=== PATIENT | male | born 1940 | race Caucasian/White ===

== ENCOUNTER → 2018-12-25 14:11 | Outpatient (CLI) | payer MEDICARE, OTHER, SELFPAY ==
--- NOTE | 2018-12-25 14:14 | DI.CT.S_ITS ---
PROCEDURE: CT SOFT TISSUE NECK W CON INDICATIONS: wt loss, h/o Hodgkin TECHNIQUE: After the administration of intravenous contrast, 3.0 mm axial sections acquired from the sella to the aortic arch. Additional oblique axial 3.0 mm sections acquired through the pharynx. 3 mm thick coronal and sagittal reformats were generated. For radiation dose reduction, the following was used: automated exposure control. COMPARISON: None. FINDINGS: Image quality: Excellent. Lymph nodes: No enlarged lymph nodes seen throughout the neck. Vessels: Visualized vasculature appears patent. Neck spaces: The oropharynx, nasopharynx, and pharynx demonstrate no mucosal lesions. The vocal cords, false vocal cords, pyriform sinuses, epiglottis, vallecula, and tongue base all appear normal. Extramucosal spaces appear unremarkable. Glands: The parotid and submandibular glands appear normal. Thyroid gland is within normal limits. Miscellaneous: Visualized brain and orbits appear normal. Lung apices appear clear. Superficial soft tissues appear normal. Bones: No suspicious bony lesions. Visualized sinuses and mastoids appear unremarkable. IMPRESSION: No neck soft tissue lymphadenopathy or soft tissue mass. Airway is patent. Dictated by: Samm Vidal M.D. on 12/25/2018 at 17:28 Approved by: Samm Vidal M.D. on 12/25/2018 at 17:30
--- NOTE | 2018-12-25 14:14 | DI.CT.S_ITS ---
PROCEDURE: CT CHEST ABD PEL W CON INDICATIONS: wt loss, h/o Hodgkin TECHNIQUE: After the administration of oral and intravenous contrast, 5 mm thick sections acquired from the lung apices to the symphysis. 5 mm coronal and sagittal reformats were performed, with additional 7 mm coronal MIP reformats through the lungs. For radiation dose reduction, the following was used: automated exposure control, adjustment of mA and/or kV according to patient size. COMPARISON: None. FINDINGS: Image quality: Excellent. CHEST: Lungs and pleura: No acute airspace opacities. Dependent atelectasis in posterior aspect of bilateral lung booker are seen. No discrete pulmonary nodule or mass. No pleural effusions or pneumothorax. Central and peripheral airways appear patent and normal in caliber. Mediastinum: Heart size is mildly enlarged. No pericardial effusion. No mediastinal or hilar adenopathy by size criteria. Thoracic aorta and central pulmonary arteries are normal in size. Esophagus is normal in caliber. There is a small hiatal hernia. Chest wall: No axillary or supraclavicular adenopathy by size criteria. Thyroid gland is within normal limits. ABDOMEN: Solid organs: Liver is normal in size and enhancement. 5 mm hypodensity is seen in left lobe of liver, and is too small to characterize Gallbladder is within normal limits. Biliary system is non dilated. Pancreas enhances normally. Spleen is normal in size and enhancement. No adrenal nodules. Kidneys demonstrate normal size and enhancement, without hydronephrosis. Tiny nonobstructing left renal calculi are seen. Peritoneum and bowel: Bowel loops demonstrate normal wall thickness and caliber. No free fluid or air. Nodes and vessels: No retroperitoneal or mesenteric adenopathy by size criteria. Aorta and inferior vena cava are normal in size. Miscellaneous: No ventral hernias. PELVIS: Genitourinary: Bladder wall thickness is normal. Enlarged prostate gland with mild mass effect of floor of urinary bladder is seen. Miscellaneous: No inguinal hernias or adenopathy. Surgical clips are seen in right inguinal region. Bones: No suspicious bony lesions. No vertebral body compression fractures. Vacuum disc phenomenon is seen at L5-S1 level. IMPRESSION: 1. Dependent atelectasis in posterior aspect of bilateral lung booker. No discrete pulmonary nodule or mass. Airway is patent. 2. No abnormally enlarged lymph nodes are seen in chest, abdomen or pelvis. 3. Possible 5 mm cyst in left lobe of liver. 4. No bowel obstruction. No free fluid or free air. 5. Enlarged prostate gland with mass effect of floor of urinary bladder. Dictated by: Samm Vidal M.D. on 12/25/2018 at 17:12 Approved by: Samm Vidal M.D. on 12/25/2018 at 17:23
== END ==
PROVIDERS: Visit Provider Internal Medicine Hematology & Oncology
DX: R63.4 Abnormal weight loss (principal); R16.1 Splenomegaly, not elsewhere classified; R63.0 Anorexia; Z85.71 Personal history of Hodgkin lymphoma
CPT/HCPCS: 70491; 71260; 74177; Q9967

== ENCOUNTER → 2019-01-31 13:22 | Outpatient (CLI) | payer MEDICARE, OTHER, SELFPAY ==
[2019-01-31 14:03] LABS: Hematocrit 37.2 % (41-53); Mean Corpuscular HGB Conc 34.8 % (30-36); Mean Corpuscular Hemoglobin 33.6 PG (26-34); Mean Corpuscular Volume 96.4 fL (80-100); Platelet Count 120 X10^3/uL (150-400); Red Blood Cell Count 3.86 X10^6/uL (4.5-5.9); Red Cell Distribution Width 12.8 % (11.6-14.8); White Blood Cell Count 5.7 X10^3/uL (4.5-11.0)
[2019-01-31 14:41] LABS: Alanine Aminotransferase 43 IU/L (21-72); Albumin 4.5 g/dL (3.5-5.0); Albumin Globulin Ratio 1.9 (1.0-2.8); Alkaline Phosphatase 36 U/L (38-126); Aspartate Aminotransferase 38 IU/L (17-59); BUN Creatinine Ratio 11.5 (6-22); Bilirubin Total 0.7 mg/dL (0.2-1.3); Blood Urea Nitrogen 15 mg/dL (9-20); Calcium 9.9 mg/dL (8.4-10.2); Carbon Dioxide 31 mmol/L (22-32); Chloride 99 mmol/L (98-107); Estimated Glomerular Filt Rate 53.1 mL/min (>60); Globulin 2.4 g/dL (1.7-4.1); Glucose 108 mg/dL (80-110); HEMOLYSIS < 15 (0-50); Potassium 4.5 mmol/L (3.4-5.1); Sodium 140 mmol/L (137-145); Total Protein 6.9 g/dL (6.3-8.2)
[2019-01-31 15:12] LABS: Prostate Specific Antigen 1.52 ng/mL (0.10-4.00)
== END ==
PROVIDERS: Visit Provider Internal Medicine Hematology & Oncology
DX: N40.0 Benign prostatic hyperplasia without lower urinary tract symptoms (principal); R16.1 Splenomegaly, not elsewhere classified; Z85.71 Personal history of Hodgkin lymphoma
CPT/HCPCS: 36415; 80053; 84153; 84403; 85027

== ENCOUNTER → 2019-02-04 13:20 | Oncology outpatient (ONC) | payer MEDICARE, OTHER, SELFPAY ==
--- NOTE | 2018-12-24 11:47 | ONC.CONS ---
History of Present Illness - Data of Consult Patient: new to practice Consult date: 12/24/18 Requesting Physician: briseyda Mccann Primary Care Provider: Dr. Briseyda Aranda - Consult Narrative Reason for consult: Wt loss, H/O HL. Narrative: ID and Reason for the Visit: Wayne Ibarra is a 78 year old male. He was referred by Dr. Briseyda Aranda for evaluation of weight loss. He has a history of Hodgkin's lymphoma. Oncological History: Stage IV classic Hodgkin's disease based on bone marrow biopsy performed for anemia. He presented with fatigue, anemia, night sweats and itching skin. He achieved complete remission after standard ABVD September 2003. Interim Events: Recently patient was evaluated by Dr. Debo Aranda. Patient reported fecal incontinence for a couple of months before it stopped spontaneously. During the same time, patient developed significant poor appetite and weight loss about 15 lb over past 1 year. He denies any night sweats, fever, lumps or bumps, cough, or chest pain. In addition to weight loss, patient complains of low energy level for years. According to patient's , he has never recovered fully after his previous chemotherapy for Hodgkin's lymphoma in 2003. CC: eHnrry Young MD Home Medications and Allergies Home Medications Medication Instructions Recorded Confirmed Type pravastatin 20 mg tablet 20 mg PO DAILY 10/12/18 10/25/18 History suvorexant 20 mg tablet 20 mg PO BEDTIME 10/12/18 10/25/18 History trazodone 50 mg tablet 50 mg PO BEDTIME PRN 10/12/18 10/25/18 History ascorbic acid (vitamin C) [Vitamin 500 mg PO DAILY 12/24/18 12/24/18 History C] buprenorphine-naloxone [Suboxone] 1 film BUCCAL DAILY 12/24/18 12/24/18 History furosemide 40 mg PO DAILY 12/24/18 12/24/18 History meloxicam 7.5 mg PO BID 12/24/18 12/24/18 History multivitamin 1 cap PO DAILY 12/24/18 12/24/18 History tamsulosin [Flomax] 0.4 mg PO DAILY 12/24/18 12/24/18 History Allergies Allergy/AdvReac Type Severity Reaction Status Date / Time No Known Drug Allergies Allergy Unverified 10/25/18 14:40 Medical History - Medical, Surgical, Family History Medical History: Medical History (Updated 12/24/18 @ 12:39 by Henrry Young MD) Depression (Acute) Hyperlipidemia (Chronic) Insomnia (Chronic) Obstructive sleep apnea of adult Surgical History: Surgical History (Updated 12/24/18 @ 12:04 by Henrry Young MD) History of tonsillectomy Family History: Family History (Updated 12/24/18 @ 12:05 by Henrry Young MD) Mother Colon cancer - Social History Smoking Status: Never smoker Substance Use Type: does not use Alcohol Intake: current (beer, most nights,) Exam Vital signs: Last Vital Signs Temp 98.7 F 12/24/18 11:54 Pulse 45 L 12/24/18 11:54 Resp 16 12/24/18 11:54 BP 131/71 12/24/18 11:54 Pulse Ox 99 12/24/18 11:54 Narrative: ECGO 1 Gen: WDWN, NAD, pleasant and cooperative. HEENT: NCAT, EOMI, PERRLA, anicteric sclera. Neck: Supple, No palpable thyromegaly or lymphadenopathy. Respiratory: CTAB, no wheezes audible. No JVD Cardiovascular: RRR, S1 and S2 normal, no M/G/R. Abdomen: Soft, no hepatomegaly. Spleen is palpable about 10 cm below the left costal margin with mild tenderness. Extremities: No LE pitting edema. Lymphatic: no palpable lymph nodes in the neck, axillae, or groins. Neurological: AOx3, CN II-XII grossly intact. No focal motor or sensory deficit. Psychiatric: Good judgment and insight; normal affect; normal thought process; cooperative, no depression, no anxiety. Results - Labs Laboratory Last Values WBC 5.0 X10^3/uL (4.5-11.0) 12/24/18 13:05 RBC 3.77 X10^6/uL (4.5-5.9) L 12/24/18 13:05 Hgb 12.7 g/dL (13.5-17.5) L 12/24/18 13:05 Hct 37.1 % (41-53) L 12/24/18 13:05 MCV 98.4 fL (80-100) 12/24/18 13:05 MCH 33.6 PG (26-34) 12/24/18 13:05 MCHC 34.1 % (30-36) 12/24/18 13:05 RDW 12.8 % (11.6-14.8) 12/24/18 13:05 Plt Count 133 X10^3/uL (150-400) L 12/24/18 13:05 Neut % (Auto) 57.3 % (50-75) 12/24/18 13:05 Lymph % (Auto) 30.3 % (25-40) 12/24/18 13:05 [place] % (Auto) 9.0 % (3-14) 12/24/18 13:05 Eos % (Auto) 3.1 % (2-4) 12/24/18 13:05 Baso % (Auto) 0.3 % (0-2) 12/24/18 13:05 Neut # (Auto) 2800 /uL (0274-0094) 12/24/18 13:05 Lymph # (Auto) 1500 /uL (9812-9162) 12/24/18 13:05 [place] # (Auto) 400 /uL (0-900) 12/24/18 13:05 Eos # (Auto) 200 /uL (0-450) 12/24/18 13:05 Baso # (Auto) 0 /uL (0-100) 12/24/18 13:05 ESR 1 MM/HR (0-15) 12/24/18 13:05 Sodium 140 mmol/L (137-145) 12/24/18 13:05 Potassium 4.6 mmol/L (3.4-5.1) 12/24/18 13:05 Chloride 101 mmol/L (98-107) 12/24/18 13:05 Carbon Dioxide 31 mmol/L (22-32) 12/24/18 13:05 BUN 14 mg/dL (9-20) 12/24/18 13:05 Creatinine 1.40 mg/dL (0.66-1.25) H 12/24/18 13:05 Estimated GFR 48.8 mL/min (>60) L 12/24/18 13:05 BUN/Creatinine Ratio 10.0 (6-22) 12/24/18 13:05 Glucose 102 mg/dL (80-110) 12/24/18 13:05 Calcium 9.5 mg/dL (8.4-10.2) 12/24/18 13:05 Total Bilirubin 0.6 mg/dL (0.2-1.3) 12/24/18 13:05 AST 31 IU/L (17-59) 12/24/18 13:05 ALT 40 IU/L (21-72) 12/24/18 13:05 Alkaline Phosphatase 39 U/L (38-126) 12/24/18 13:05 Lactate Dehydrogenase 487 U/L (313-618) 12/24/18 13:05 C-Reactive Protein < 0.5 mg/dL (<1.0) 12/24/18 13:05 Total Protein 6.6 g/dL (6.3-8.2) 12/24/18 13:05 Albumin 4.3 g/dL (3.5-5.0) 12/24/18 13:05 Globulin 2.3 g/dL (1.7-4.1) 12/24/18 13:05 Albumin/Globulin Ratio 1.9 (1.0-2.8) 12/24/18 13:05 - Imaging Additional studies: Procedures Endoscopic polypectomy of large intestine (12/27/11) [Endoscopic] polypectomy of rectum (12/27/11) Assessment and Plan (1) Weight loss Unexplained weight loss with palpable splenomegaly, fatigue, loss of appetite in the context of remote history of Hodgkin's lymphoma is suspicious for possible recurrence. I will proceed with CT scan of the neck chest abdomen and pelvis with contrast. And I will see the patient next week for further discussion of possible tissue diagnosis. (2) Splenomegaly See Weight Loss above (3) Loss of appetite See Weight Loss above (4) History of Hodgkin's lymphoma Stage IV classic Hodgkin's disease based on bone marrow biopsy performed for anemia. He presented with fatigue, anemia, night sweats and itching skin. He achieved complete remission after standard ABVD September 2003.
[2018-12-24 11:54] VITALS: BP 131/71; PULSE 45; RESP 16; TEMP 37.1; O2SAT 99
[2018-12-24 13:24] LABS: Add Manual Diff / Slide Review NO; Basophils Absolute Auto 0 /uL (0-100); Basophils Percent Auto 0.3 % (0-2); Eosinophils Absolute Auto 200 /uL (0-450); Eosinophils Percent Auto 3.1 % (2-4); Hematocrit 37.1 % (41-53); Hemoglobin 12.7 g/dL (13.5-17.5); Lymphocytes Absolute Auto 1500 /uL (1100-4500); Lymphocytes Percent Auto 30.3 % (25-40); Mean Corpuscular HGB Conc 34.1 % (30-36); Mean Corpuscular Hemoglobin 33.6 PG (26-34); Mean Corpuscular Volume 98.4 fL (80-100); Monocytes Absolute Auto 400 /uL (0-900); Neutrophils Absolute Auto 2800 /uL (1500-7000); Neutrophils Percent Auto 57.3 % (50-75); Platelet Count 133 X10^3/uL (150-400); Red Blood Cell Count 3.77 X10^6/uL (4.5-5.9); Red Cell Distribution Width 12.8 % (11.6-14.8)
[2018-12-24 13:47] LABS: Erythrocyte Sedimentation Rate 1 MM/HR (0-15)
[2018-12-24 13:56] LABS: Alanine Aminotransferase 40 IU/L (21-72); Albumin 4.3 g/dL (3.5-5.0); Albumin Globulin Ratio 1.9 (1.0-2.8); Alkaline Phosphatase 39 U/L (38-126); Aspartate Aminotransferase 31 IU/L (17-59); Bilirubin Total 0.6 mg/dL (0.2-1.3); Blood Urea Nitrogen 14 mg/dL (9-20); C-Reactive Protein Quant < 0.5 mg/dL (<1.0); Calcium 9.5 mg/dL (8.4-10.2); Carbon Dioxide 31 mmol/L (22-32); Chloride 101 mmol/L (98-107); Estimated Glomerular Filt Rate 48.8 mL/min (>60); Globulin 2.3 g/dL (1.7-4.1); Glucose 102 mg/dL (80-110); HEMOLYSIS < 15 (0-50); Lactate Dehydrogenase 487 U/L (313-618); Potassium 4.6 mmol/L (3.4-5.1); Sodium 140 mmol/L (137-145); Total Protein 6.6 g/dL (6.3-8.2)
[2019-01-03 08:25] VITALS: BP 128/73; PULSE 50; RESP 20; TEMP 36.4; O2SAT 98
--- NOTE | 2019-01-03 08:36 | ONC.PN ---
PN -Subjective Interval history: ID and Reason for the Visit: Wayne Ibarra is a 78 year old male. He was referred by Dr. Sayda Aranda for evaluation of weight loss. He has a history of Hodgkin's lymphoma. Oncological History: Stage IV classic Hodgkin's disease based on bone marrow biopsy performed for anemia. He presented with fatigue, anemia, night sweats and itching skin. He achieved complete remission after standard ABVD September 2003. Interim Events: Since his previous visit, clinically patient reports no new signs or symptoms. Patient underwent CT of the neck chest abdomen and pelvis on 12/25/2018. The scan showed no evidence of lymphadenopathy, no evidence of pulmonary nodules, and no evidence of splenomegaly. Instead it showed significantly enlarged prostate. Patient and patient's said that PSA level was normal about a month ago at Dr. Debo Aranda's office. Today, I look back on the weight chart, patient's weight actually has been stable since December of 2017. Today patient said that his appetite seems to be improving. - Patient Self-Reported Symptoms SR Constitution: Weight loss/gain, Fatigue/Malaise SR Skin issues: Skin lesions or moles, Nail changes SR Gastrointestinal issues: Poor or no appetite, Change in bowel pattern, Diarrhea SR Musculoskeletal issues: Difficulty walking SR Neuro issues: Difficulty balancing SR Endocrine issues: Cold intolerance - Additional ROS All systems PM: reviewed and no additional remarkable complaints except as stated Home Medications and Allergies Home Medications Medication Instructions Recorded Confirmed Type pravastatin 20 mg tablet 20 mg PO DAILY 10/12/18 01/03/19 History suvorexant 20 mg tablet 20 mg PO BEDTIME 10/12/18 01/03/19 History trazodone 50 mg tablet 50 mg PO BEDTIME PRN 10/12/18 01/03/19 History ascorbic acid (vitamin C) [Vitamin 500 mg PO DAILY 12/24/18 01/03/19 History C] buprenorphine-naloxone [Suboxone] 1 film BUCCAL DAILY 12/24/18 01/03/19 History furosemide 40 mg PO DAILY 12/24/18 01/03/19 History meloxicam 7.5 mg PO BID 12/24/18 01/03/19 History multivitamin 1 cap PO DAILY 12/24/18 01/03/19 History tamsulosin [Flomax] 0.4 mg PO DAILY 12/24/18 01/03/19 History Allergies Allergy/AdvReac Type Severity Reaction Status Date / Time No Known Drug Allergies Allergy Unverified 10/25/18 14:40 Exam Vital signs: Vital Signs Temp Pulse Resp BP Pulse Ox 01/03/19 08:25 97.5 F L 50 L 20 128/73 98 Intake and Output 01/02/19 01/03/19 01/03/19 23:59 07:59 15:59 Other: Weight 80.2 kg Patient Weight 01/03/19 23:59 Weight 80.2 kg Narrative: ECGO 1 Gen: WDWN, NAD, pleasant and cooperative. HEENT: NCAT, EOMI, PERRLA, anicteric sclera. Neck: Supple, No palpable thyromegaly or lymphadenopathy. Respiratory: CTAB, no wheezes audible. No JVD Cardiovascular: RRR, S1 and S2 normal, no M/G/R. Abdomen: Soft, no hepatomegaly. no splenomegaly Extremities: No LE pitting edema. Lymphatic: no palpable lymph nodes in the neck, axillae, or groins. Neurological: AOx3, CN II-XII grossly intact. No focal motor or sensory deficit. Psychiatric: Normal affect; normal thought process; cooperative, no depression, no anxiety. Results - Labs Laboratory Last Values WBC 5.0 X10^3/uL (4.5-11.0) 12/24/18 13:05 RBC 3.77 X10^6/uL (4.5-5.9) L 12/24/18 13:05 Hgb 12.7 g/dL (13.5-17.5) L 12/24/18 13:05 Hct 37.1 % (41-53) L 12/24/18 13:05 MCV 98.4 fL (80-100) 12/24/18 13:05 MCH 33.6 PG (26-34) 12/24/18 13:05 MCHC 34.1 % (30-36) 12/24/18 13:05 RDW 12.8 % (11.6-14.8) 12/24/18 13:05 Plt Count 133 X10^3/uL (150-400) L 12/24/18 13:05 Neut % (Auto) 57.3 % (50-75) 12/24/18 13:05 Lymph % (Auto) 30.3 % (25-40) 12/24/18 13:05 [place] % (Auto) 9.0 % (3-14) 12/24/18 13:05 Eos % (Auto) 3.1 % (2-4) 12/24/18 13:05 Baso % (Auto) 0.3 % (0-2) 12/24/18 13:05 Neut # (Auto) 2800 /uL (5168-9939) 12/24/18 13:05 Lymph # (Auto) 1500 /uL (7075-5718) 12/24/18 13:05 [place] # (Auto) 400 /uL (0-900) 12/24/18 13:05 Eos # (Auto) 200 /uL (0-450) 12/24/18 13:05 Baso # (Auto) 0 /uL (0-100) 12/24/18 13:05 ESR 1 MM/HR (0-15) 12/24/18 13:05 Sodium 140 mmol/L (137-145) 12/24/18 13:05 Potassium 4.6 mmol/L (3.4-5.1) 12/24/18 13:05 Chloride 101 mmol/L (98-107) 12/24/18 13:05 Carbon Dioxide 31 mmol/L (22-32) 12/24/18 13:05 BUN 14 mg/dL (9-20) 12/24/18 13:05 Creatinine 1.40 mg/dL (0.66-1.25) H 12/24/18 13:05 Estimated GFR 48.8 mL/min (>60) L 12/24/18 13:05 BUN/Creatinine Ratio 10.0 (6-22) 12/24/18 13:05 Glucose 102 mg/dL (80-110) 12/24/18 13:05 Calcium 9.5 mg/dL (8.4-10.2) 12/24/18 13:05 Total Bilirubin 0.6 mg/dL (0.2-1.3) 12/24/18 13:05 AST 31 IU/L (17-59) 12/24/18 13:05 ALT 40 IU/L (21-72) 12/24/18 13:05 Alkaline Phosphatase 39 U/L (38-126) 12/24/18 13:05 Lactate Dehydrogenase 487 U/L (313-618) 12/24/18 13:05 C-Reactive Protein < 0.5 mg/dL (<1.0) 12/24/18 13:05 Total Protein 6.6 g/dL (6.3-8.2) 12/24/18 13:05 Albumin 4.3 g/dL (3.5-5.0) 12/24/18 13:05 Globulin 2.3 g/dL (1.7-4.1) 12/24/18 13:05 Albumin/Globulin Ratio 1.9 (1.0-2.8) 12/24/18 13:05 - Imaging Additional studies: Procedures Endoscopic polypectomy of large intestine (12/27/11) [Endoscopic] polypectomy of rectum (12/27/11) Assessment and Plan (1) Enlarged prostate The CT scan we obtained on December 25 showed significantly enlarged prostate with mass effect of floor of urinary bladder. Remarkably, clinically patient does not have any problems with the urine. Patient did have a brief history of fecal incontinence which has already resolved. I talked with him and his that the fecal incontinence might be related to the enlarged prostate. I recommended urology evaluation and patient agrees. Plan: Referral to urology at [facility] in one month, CBC, CMP, PSA/T (2) Elevated serum creatinine Mildly elevated serum creatinine level. Suspicious for possible chronic kidney disease. We will follow up the trend when he comes back in a month. (3) Weight loss Today, I compared the weight from 2018 to the weight we obtained today. Patient's weight actually has remained stable. Patient's suggested that patient may have a weight gain and recently lost some weight. I talked with him that I will continue follow-up on his change of weight. (4) Loss of appetite Patient admitted that his appetite seems to be improving. I talked with him that I will continue active surveillance and pay special attention to his weight and appetite. Patient voiced understanding. (5) History of Hodgkin's lymphoma Stage IV classic Hodgkin's disease based on bone marrow biopsy performed for anemia. He presented with fatigue, anemia, night sweats and itching skin at that time. He achieved complete remission after standard ABVD September 2003. Today, I reviewed the CT scan results at the [facility] with the patient and his . I talked with them that there is no evidence of lymphadenopathy from neck to pelvis. In my opinion there are no signs or symptoms to suggest recurrence of his previous Hodgkin's lymphoma. I will continue active surveillance.
[2019-01-11 10:38] LABS: Beta-2-Microglobulin 2.86
[2019-02-04 13:20] VITALS: BP 135/69; PULSE 52; RESP 18; TEMP 36.2; O2SAT 100
--- NOTE | 2019-02-04 13:32 | P.PNONC_ITS ---
PN -Subjective Interval history: ID and Reason for the Visit: Wayne Ibarra is a 78 year old male. He was referred by Dr. Sayda Aranda for evaluation of weight loss. He has a history of Hodgkin's lymphoma. Oncological History: Stage IV classic Hodgkin's disease based on bone marrow biopsy performed for anemia. He presented with fatigue, anemia, night sweats and itching skin. He achieved complete remission after standard ABVD September 2003. Interim Events: Patient underwent CT of the neck chest abdomen and pelvis on 12/25/2018. The scan showed no evidence of lymphadenopathy, no evidence of pulmonary nodules, and no evidence of splenomegaly. Instead it showed significantly enlarged prostate. Because of the CT finding of prostate enlargement, patient was referred to Dr. Carrion at [facility]. The CT images were reviewed together with the patient. It showed left punctate kidney stone and enlarged prostate. However Dr. Carrion did not find the findings terribly impressive. After discussing with the patient, no PSA screening will be pursued. - Patient Self-Reported Symptoms SR Constitution: Weight loss/gain, Fatigue/Malaise SR Skin issues: Skin lesions or moles, Nail changes SR Gastrointestinal issues: Poor or no appetite, Change in bowel pattern, Diarrhea SR Musculoskeletal issues: Muscle pain or cramps SR Neuro issues: Difficulty balancing SR Endocrine issues: Cold intolerance - Additional ROS All systems PM: reviewed and no additional remarkable complaints except as stated Home Medications and Allergies Home Medications Medication Instructions Recorded Confirmed Type pravastatin 20 mg tablet 20 mg PO DAILY 10/12/18 02/04/19 History suvorexant 20 mg tablet 20 mg PO BEDTIME 10/12/18 02/04/19 History trazodone 50 mg tablet 300 mg PO BEDTIME PRN 10/12/18 02/04/19 History ascorbic acid (vitamin C) [Vitamin 500 mg PO DAILY 12/24/18 02/04/19 History C] buprenorphine-naloxone [Suboxone] 1 film BUCCAL DAILY 12/24/18 02/04/19 History furosemide 80 mg PO DAILY 12/24/18 02/04/19 History meloxicam 7.5 mg PO BID 12/24/18 02/04/19 History multivitamin 1 cap PO DAILY 12/24/18 02/04/19 History tamsulosin [Flomax] 0.4 mg PO DAILY 12/24/18 02/04/19 History Allergies Allergy/AdvReac Type Severity Reaction Status Date / Time No Known Drug Allergies Allergy Unverified 10/25/18 14:40 Exam Vital signs: Vital Signs Temp Pulse Resp BP Pulse Ox 02/04/19 13:20 97.1 F L 52 L 18 135/69 100 Intake and Output 02/03/19 02/04/19 02/04/19 23:59 07:59 15:59 Other: Weight 81 kg Patient Weight 02/04/19 23:59 Weight 81 kg Results - Labs Laboratory Last Values WBC 5.0 X10^3/uL (4.5-11.0) 12/24/18 13:05 RBC 3.77 X10^6/uL (4.5-5.9) L 12/24/18 13:05 Hgb 12.7 g/dL (13.5-17.5) L 12/24/18 13:05 Hct 37.1 % (41-53) L 12/24/18 13:05 MCV 98.4 fL (80-100) 12/24/18 13:05 MCH 33.6 PG (26-34) 12/24/18 13:05 MCHC 34.1 % (30-36) 12/24/18 13:05 RDW 12.8 % (11.6-14.8) 12/24/18 13:05 Plt Count 133 X10^3/uL (150-400) L 12/24/18 13:05 Neut % (Auto) 57.3 % (50-75) 12/24/18 13:05 Lymph % (Auto) 30.3 % (25-40) 12/24/18 13:05 [place] % (Auto) 9.0 % (3-14) 12/24/18 13:05 Eos % (Auto) 3.1 % (2-4) 12/24/18 13:05 Baso % (Auto) 0.3 % (0-2) 12/24/18 13:05 Neut # (Auto) 2800 /uL (9552-0302) 12/24/18 13:05 Lymph # (Auto) 1500 /uL (0650-5599) 12/24/18 13:05 [place] # (Auto) 400 /uL (0-900) 12/24/18 13:05 Eos # (Auto) 200 /uL (0-450) 12/24/18 13:05 Baso # (Auto) 0 /uL (0-100) 12/24/18 13:05 ESR 1 MM/HR (0-15) 12/24/18 13:05 Sodium 140 mmol/L (137-145) 12/24/18 13:05 Potassium 4.6 mmol/L (3.4-5.1) 12/24/18 13:05 Chloride 101 mmol/L (98-107) 12/24/18 13:05 Carbon Dioxide 31 mmol/L (22-32) 12/24/18 13:05 BUN 14 mg/dL (9-20) 12/24/18 13:05 Creatinine 1.40 mg/dL (0.66-1.25) H 12/24/18 13:05 Estimated GFR 48.8 mL/min (>60) L 12/24/18 13:05 BUN/Creatinine Ratio 10.0 (6-22) 12/24/18 13:05 Glucose 102 mg/dL (80-110) 12/24/18 13:05 Calcium 9.5 mg/dL (8.4-10.2) 12/24/18 13:05 Total Bilirubin 0.6 mg/dL (0.2-1.3) 12/24/18 13:05 AST 31 IU/L (17-59) 12/24/18 13:05 ALT 40 IU/L (21-72) 12/24/18 13:05 Alkaline Phosphatase 39 U/L (38-126) 12/24/18 13:05 Lactate Dehydrogenase 487 U/L (313-618) 12/24/18 13:05 C-Reactive Protein < 0.5 mg/dL (<1.0) 12/24/18 13:05 Total Protein 6.6 g/dL (6.3-8.2) 12/24/18 13:05 Albumin 4.3 g/dL (3.5-5.0) 12/24/18 13:05 Globulin 2.3 g/dL (1.7-4.1) 12/24/18 13:05 Albumin/Globulin Ratio 1.9 (1.0-2.8) 12/24/18 13:05 [id number] 2.86 12/24/18 13:05 - Imaging Additional studies: Procedures Endoscopic polypectomy of large intestine (12/27/11) [Endoscopic] polypectomy of rectum (12/27/11) Assessment and Plan (1) Enlarged prostate The CT scan we obtained on December 25 showed significantly enlarged prostate with mass effect of floor of urinary bladder. Dr. Carrion at [facility] saw the patient and did not think there is any terribly impressive CT finding. She discussed with the patient about the guideline for PSA screening, patient decided not to continue PSA screening. (2) Elevated serum creatinine Mildly elevated serum creatinine level. Suspicious for possible chronic kidney disease. Follow up with Dr. Alfredo (3) Loss of appetite Patient admitted that his appetite seems to be improving. I talked with him that I will continue active surveillance and pay special attention to his weight and appetite. Patient voiced understanding. (4) History of Hodgkin's lymphoma Stage IV classic Hodgkin's disease based on bone marrow biopsy performed for anemia. He presented with fatigue, anemia, night sweats and itching skin at that time. He achieved complete remission after standard ABVD September 2003. No clinical or imagine evidence of recurrence. Continue active surveillance. Plan: 1. RTC in 6 months, 2. CBC, CMP, LDH
== END ==
PROVIDERS: PCP Student in an Organized Health Care Education/Training Program; Visit Provider Internal Medicine Hematology & Oncology
DX: N40.0 Benign prostatic hyperplasia without lower urinary tract symptoms (principal); R63.0 Anorexia; R63.4 Abnormal weight loss; R74.8 Abnormal levels of other serum enzymes; Z85.71 Personal history of Hodgkin lymphoma
CPT/HCPCS: 36415; 80053; 82232; 83615; 85025; 85651; 86140; 99204; 99214

== ENCOUNTER → 2020-01-31 11:12 | Outpatient (CLI) | payer MEDICARE, OTHER, SELFPAY | PROVIDERS: PCP Physician Assistant; Referring Provider Physician Assistant; Visit Provider Physician Assistant | DX: R19.7 Diarrhea, unspecified (principal) | CPT/HCPCS: 87177 ==

== ENCOUNTER → 2020-02-09 14:22 | Outpatient (CLI) | payer MEDICARE, OTHER, SELFPAY ==
[2020-02-10 14:48] LABS: COVID19 Sendout Not Detected (Not Detect)
== END ==
PROVIDERS: PCP Physician Assistant; Visit Provider Physician Assistant
DX: Z01.812 Encounter for preprocedural laboratory examination (principal)
CPT/HCPCS: 87635

== ENCOUNTER → 2020-12-15 07:39 | Outpatient (CLI) | payer MEDICARE, OTHER, SELFPAY ==
[2020-12-15 09:26] LABS: Add Manual Diff / Slide Review NO; Basophils Absolute Auto 0 /uL (0-100); Basophils Percent Auto 0.5 % (0-2); Eosinophils Absolute Auto 100 /uL (0-450); Eosinophils Percent Auto 2.8 % (2-4); Hematocrit 42.6 % (41-53); Hemoglobin 14.3 g/dL (13.5-17.5); Lymphocytes Absolute Auto 1400 /uL (1100-4500); Lymphocytes Percent Auto 27.9 % (25-40); Mean Corpuscular HGB Conc 33.7 % (30-36); Mean Corpuscular Hemoglobin 34.3 PG (26-34); Mean Corpuscular Volume 101.8 fL (80-100); Monocytes Absolute Auto 400 /uL (0-900); Monocytes Percent Auto 8.6 % (3-14); Neutrophils Absolute Auto 3000 /uL (1500-7000); Neutrophils Percent Auto 60.2 % (50-75); Platelet Count 128 X10^3/uL (150-400); Red Blood Cell Count 4.18 X10^6/uL (4.5-5.9); Red Cell Distribution Width 12.5 % (11.6-14.8)
[2020-12-15 09:27] LABS: Alanine Aminotransferase 45 IU/L (<50); Albumin 4.1 g/dL (3.5-5.0); Albumin Globulin Ratio 1.7 (1.0-2.8); Alkaline Phosphatase 50 U/L (38-126); Aspartate Aminotransferase 43 IU/L (17-59); BUN Creatinine Ratio 13.1 (6-22); Bilirubin Total 0.5 mg/dL (0.2-1.3); Blood Urea Nitrogen 17 mg/dL (9-20); Calcium 9.7 mg/dL (8.4-10.2); Carbon Dioxide 29 mmol/L (22-32); Chloride 108 mmol/L (98-107); Cholesterol 158 mg/dL (140-199); Estimated Glomerular Filt Rate 52.9 mL/min (>60); Globulin 2.4 g/dL (1.7-4.1); Glucose 112 mg/dL (80-110); HDL Cholesterol 48 mg/dL (40-60); HEMOLYSIS 18 (0-50); LDL Cholesterol Calculated 85 mg/dL (<100); Potassium 4.5 mmol/L (3.4-5.1); Sodium 143 mmol/L (137-145); Total Protein 6.5 g/dL (6.3-8.2); Triglycerides 125 mg/dL (35-150)
[2020-12-15 09:41] LABS: Follicle Stimulating Hormone 0.95 mIU/mL; Luteinizing Hormone 0.336 mIU/mL
[2020-12-15 09:55] LABS: Thyroid Stimulating Hormone 0.134 uIU/mL (0.47-4.68)
[2020-12-15 12:47] LABS: Free T4, Direct Thyroxine 0.83 ng/dL (0.78-2.19)
[2020-12-22 10:47] LABS: Percent Free Testosterone 2.31 % (1.50-4.20); Testosterone Free 6.12 ng/dL (5.00-21.00); Testosterone Total 264.8 ng/dL (264.0-916.0)
== END ==
PROVIDERS: PCP Physician Assistant; Referring Provider Physician Assistant; Visit Provider Physician Assistant
DX: R53.83 Other fatigue (principal); E29.1 Testicular hypofunction; Z13.220 Encounter for screening for lipoid disorders
CPT/HCPCS: 36415; 80053; 80061; 83001; 83002; 84402; 84403; 84439; 84443; 85025

== ENCOUNTER → 2021-02-23 15:01 | Outpatient (CLI) | payer MEDICARE, OTHER, SELFPAY ==
[2021-02-23 15:37] LABS: Add Manual Diff / Slide Review NO; Basophils Absolute Auto 0 /uL (0-100); Basophils Percent Auto 0.6 % (0-2); Eosinophils Absolute Auto 100 /uL (0-450); Eosinophils Percent Auto 1.4 % (2-4); Hematocrit 49.3 % (41-53); Hemoglobin 16.3 g/dL (13.5-17.5); Lymphocytes Absolute Auto 1300 /uL (1100-4500); Mean Corpuscular Hemoglobin 34.5 PG (26-34); Mean Corpuscular Volume 104.5 fL (80-100); Monocytes Absolute Auto 700 /uL (0-900); Monocytes Percent Auto 11.5 % (3-14); Neutrophils Absolute Auto 3900 /uL (1500-7000); Neutrophils Percent Auto 65.5 % (50-75); Platelet Count 120 X10^3/uL (150-400); Red Blood Cell Count 4.71 X10^6/uL (4.5-5.9); Red Cell Distribution Width 13.3 % (11.6-14.8)
[2021-02-23 16:15] LABS: Alanine Aminotransferase 53 IU/L (<50); Albumin 4.1 g/dL (3.5-5.0); Albumin Globulin Ratio 1.8 (1.0-2.8); Alkaline Phosphatase 43 U/L (38-126); Aspartate Aminotransferase 49 IU/L (17-59); BUN Creatinine Ratio 7.1 (6-22); Bilirubin Total 0.6 mg/dL (0.2-1.3); Blood Urea Nitrogen 8 mg/dL (9-20); Calcium 9.3 mg/dL (8.4-10.2); Carbon Dioxide 30 mmol/L (22-32); Chloride 100 mmol/L (98-107); Estimated Glomerular Filt Rate > 60.0 mL/min (>60); Globulin 2.3 g/dL (1.7-4.1); Glucose 80 mg/dL (80-110); HEMOLYSIS 18 (0-50); Potassium 4.4 mmol/L (3.4-5.1); Sodium 138 mmol/L (137-145); Total Protein 6.4 g/dL (6.3-8.2)
[2021-02-23 16:19] LABS: High Sensitivity CRP - Cardiac < 0.3 mg/L (1.0-3.0)
[2021-02-23 16:31] LABS: Erythrocyte Sedimentation Rate 1 MM/HR (0-15)
[2021-02-25 12:10] LABS: Acetylcholine Receptor Bind AB <0.03 nmol/L (0.00-0.24)
[2021-02-28 13:42] LABS: MuSK Antibodies <1.0 U/mL (.)
[2021-03-02 12:41] LABS: Acetylcholine Rec Blocking AB 6 % (0-25)
== END ==
PROVIDERS: PCP Physician Assistant; Referring Provider Ophthalmology; Visit Provider Ophthalmology
DX: H53.2 Diplopia (principal)
CPT/HCPCS: 36415; 80053; 83519; 84443; 85025; 85651; 86140

== ENCOUNTER → 2021-02-25 13:58 | Outpatient (CLI) | payer MEDICARE, OTHER, SELFPAY ==
--- NOTE | 2021-02-25 14:01 | DI.US.S_ITS ---
PROCEDURE: US CAROTID DOPPLER BI INDICATIONS: DIPLOPIA TECHNIQUE: Color and pulse Doppler interrogation was performed of both carotid systems, with image documentation and velocity measurements. COMPARISON: [facility], CT, CT SOFT TISSUE NECK W CON, 12/25/2018, 15:38. FINDINGS: Stenosis calculations are based on SRU (Society of Radiologists in Ultrasound) criteria. The flow velocities and the arterial waveforms are normal within both carotid arterial systems. Minimal atherosclerotic plaque is seen on both sides. The estimated degree of internal carotid artery stenosis is less than 50%. Antegrade flow is confirmed within both vertebral arteries. IMPRESSION: No hemodynamically significant stenosis is seen. Dictated by: Jef Gregory M.D. on 02/25/2021 at 14:01 Approved by: Jef Gregory M.D. on 02/25/2021 at 14:02
== END ==
PROVIDERS: PCP Physician Assistant; Referring Provider Ophthalmology; Visit Provider Ophthalmology
DX: H53.2 Diplopia (principal)
CPT/HCPCS: 93880

== ENCOUNTER → 2022-05-18 08:57 | Outpatient (CLI) | payer OTHER, SELFPAY ==
[2022-05-18 10:49] LABS: Alanine Aminotransferase 94 IU/L (<50); Alkaline Phosphatase 59 U/L (38-126); Aspartate Aminotransferase 52 IU/L (17-59); Bilirubin Unconjugated 0.7 mg/dL (0.0-1.1); Cholesterol 135 mg/dL (140-199); HDL Cholesterol 53 mg/dL (40-60); HEMOLYSIS < 15 (0-50); LDL Cholesterol Calculated 62 mg/dL (<100); Total Protein 6.7 g/dL (6.3-8.2); Triglycerides 100 mg/dL (35-150)
[2022-05-20 17:49] LABS: Albumin 4.4 g/dL (3.5-5.0); Albumin Globulin Ratio 1.9 (1.0-2.8); Globulin 2.3 g/dL (1.7-4.1)
== END ==
PROVIDERS: PCP Physician Assistant; Referring Provider Physician Assistant; Visit Provider Physician Assistant
DX: E78.5 Hyperlipidemia, unspecified (principal)
CPT/HCPCS: 36415; 80061; 80076

== ENCOUNTER → 2022-08-03 09:14 | Outpatient (CLI) | payer OTHER, SELFPAY ==
--- NOTE | 2022-08-03 09:16 | DI.RAD.S_ITS ---
PROCEDURE: XR ANKLE RT MIN 3V INDICATIONS: Ankle pain TECHNIQUE: 3 views of the ankle were acquired. COMPARISON: None. FINDINGS: Bones: No fractures or dislocations. Ankle mortise is normally aligned. No suspicious bony lesions. Soft tissues: No tibiotalar joint effusion. Achilles tendon appears normal. IMPRESSION: No acute fracture. No osseous lesion. If symptoms and/or clinical suspicion for pathology persist, further assessment with repeat, or advanced imaging (e.g., CT, MRI, or bone scan) may be helpful for further assessment. Dictated by: Shannan Fuller M.D. on 08/03/2022 at 11:40 Transcribed by: ALBIN on 08/03/2022 at 11:40 Approved by: Shannan Fuller M.D. on 08/03/2022 at 16:38
== END ==
PROVIDERS: PCP Physician Assistant; Referring Provider Nurse Practitioner Family; Visit Provider Nurse Practitioner Family
DX: M25.571 Pain in right ankle and joints of right foot (principal)
CPT/HCPCS: 73610

== ENCOUNTER → 2022-10-06 10:36 | Outpatient (CLI) | payer OTHER, SELFPAY ==
[2022-10-06 12:04] LABS: Add Manual Diff / Slide Review NO; Basophils Absolute Auto 0 /uL (0-100); Basophils Percent Auto 0.7 % (0-2); Eosinophils Absolute Auto 200 /uL (0-450); Eosinophils Percent Auto 3.9 % (2-4); Hemoglobin 13.5 g/dL (13.5-17.5); Lymphocytes Absolute Auto 1100 /uL (1100-4500); Lymphocytes Percent Auto 26.3 % (25-40); Mean Corpuscular HGB Conc 34.6 % (30-36); Mean Corpuscular Hemoglobin 34.6 PG (26-34); Mean Corpuscular Volume 99.9 fL (80-100); Monocytes Absolute Auto 400 /uL (0-900); Monocytes Percent Auto 8.5 % (3-14); Neutrophils Absolute Auto 2600 /uL (1500-7000); Neutrophils Percent Auto 60.6 % (50-75); Platelet Count 116 X10^3/uL (150-400); Red Cell Distribution Width 12.6 % (11.6-14.8); White Blood Cell Count 4.3 X10^3/uL (4.5-11.0)
[2022-10-06 12:23] LABS: Alanine Aminotransferase 84 IU/L (<50); Albumin 4.2 g/dL (3.5-5.0); Alkaline Phosphatase 56 U/L (38-126); Aspartate Aminotransferase 52 IU/L (17-59); BUN Creatinine Ratio 14.7 (6-22); Bilirubin Total 0.9 mg/dL (0.2-1.3); Bilirubin Unconjugated 0.9 mg/dL (0.0-1.1); Blood Urea Nitrogen 16 mg/dL (9-20); Calcium 9.3 mg/dL (8.4-10.2); Carbon Dioxide 29 mmol/L (22-32); Chloride 106 mmol/L (98-107); Cholesterol 121 mg/dL (140-199); Estimated Glomerular Filt Rate > 60 mL/min (>60); Globulin 2.1 g/dL (1.7-4.1); Glucose 105 mg/dL (80-110); HDL Cholesterol 50 mg/dL (40-60); HEMOLYSIS < 15 (0-50); LDL Cholesterol Calculated 57 mg/dL (<100); Potassium 4.4 mmol/L (3.4-5.1); Sodium 139 mmol/L (137-145); Total Protein 6.3 g/dL (6.3-8.2); Triglycerides 72 mg/dL (35-150)
[2022-10-06 12:51] LABS: TSH w/ Reflex to FT4 0.17 uIU/mL (0.47-4.68)
[2022-10-06 13:27] LABS: Free T4, Direct Thyroxine 0.81 ng/dL (0.78-2.19)
[2022-10-06 16:30] LABS: Hep C Virus Ab w/Reflex Quant NEGATIVE s/c (NEGATIVE)
== END ==
PROVIDERS: PCP Physician Assistant; Referring Provider Physician Assistant; Visit Provider Physician Assistant
DX: E78.5 Hyperlipidemia, unspecified (principal); R74.8 Abnormal levels of other serum enzymes; I10 Essential (primary) hypertension
CPT/HCPCS: 36415; 80048; 80061; 80076; 84439; 84443; 85025; 86803

== ENCOUNTER → 2022-11-15 09:37 | Outpatient (CLI) | payer OTHER, SELFPAY ==
[2022-11-15 10:55] LABS: Appearance Urine UA CLEAR; Bilirubin Urine UA NEGATIVE (NEGATIVE); Color Urine UA YELLOW; Glucose Urine UA NEGATIVE (Negative); Ketones Urine UA NEGATIVE (NEGATIVE); Leukocyte Esterase Urine UA NEGATIVE (NEGATIVE); Nitrite Urine UA NEGATIVE (Negative); Occult Blood Urine UA TRACE-INTACT (Negative); Protein Urine UA NEGATIVE (Negative); Specific Gravity Urine UA 1.015 (1.000-1.035); Urobilinogen Urine UA 0.2 E.U./dL (0.2)
[2022-11-15 10:59] LABS: Alanine Aminotransferase 101 IU/L (<50); Albumin Globulin Ratio 1.9 (1.0-2.8); Alkaline Phosphatase 51 U/L (38-126); Aspartate Aminotransferase 61 IU/L (17-59); BUN Creatinine Ratio 14.7 (6-22); Blood Urea Nitrogen 16 mg/dL (9-20); C-Reactive Protein Quant < 0.5 mg/dL (<1.0); Calcium 9.1 mg/dL (8.4-10.2); Carbon Dioxide 30 mmol/L (22-32); Chloride 104 mmol/L (98-107); Estimated Glomerular Filt Rate > 60 mL/min (>60); Globulin 2.1 g/dL (1.7-4.1); Glucose 90 mg/dL (80-110); HEMOLYSIS < 15 (0-50); Potassium 4.5 mmol/L (3.4-5.1); Sodium 139 mmol/L (137-145); Total Protein 6.1 g/dL (6.3-8.2)
[2022-11-15 11:00] LABS: NT-proBNP (BNP-Adult 18+) 277 pg/mL (<450)
[2022-11-15 11:13] LABS: Amorphous Sediment Urine 1+; Culture Indicated Urine Cult Not Indicated; Squamous Epithelial Cell Urine None Seen (0-5/HPF)
[2022-11-15 11:19] LABS: Bacteria Urine Occasional (0-1); RBC Urine 0-1/HPF (0-5/HPF); WBC Urine 0-1/HPF (0-5/HPF)
[2022-11-15 11:23] LABS: TSH w/ Reflex to FT4 0.33 uIU/mL (0.47-4.68)
[2022-11-15 12:12] LABS: Free T4, Direct Thyroxine 0.82 ng/dL (0.78-2.19)
== END ==
PROVIDERS: PCP Physician Assistant; Referring Provider Physician Assistant; Visit Provider Physician Assistant
DX: I10 Essential (primary) hypertension (principal); E78.5 Hyperlipidemia, unspecified; R79.89 Other specified abnormal findings of blood chemistry; R60.9 Edema, unspecified; N39.43 Post-void dribbling
CPT/HCPCS: 36415; 80053; 81001; 83880; 84439; 84443; 86140

== ENCOUNTER → 2022-12-02 11:13 | Outpatient (CLI) | payer OTHER, SELFPAY ==
--- NOTE | 2022-12-02 | DI.US.S_ITS ---
PROCEDURE: US ABDOMEN LIMITED INDICATIONS: ELEVATED LIVER ENZYMES TECHNIQUE: Real-time focused scanning was performed of the abdomen, with image documentation. COMPARISON: None. FINDINGS: The liver is normal in size and demonstrates no focal lesions. Note is made of a 6 mm simple cyst within the left lobe of the liver. No findings of gallstones or sludge are seen. The gallbladder wall is not thickened, measuring 3 mm or less. No specific pericholecystic fluid is seen. The sonographic Miller sign is negative. There is no biliary dilatation, the common bile duct measures 2 mm. No significant pancreatic abnormality is seen on these images. IMPRESSION: No significant abnormality is seen of the liver. Incidental note is made of a 6 mm left liver cyst, benign. Dictated by: Jef Gregory M.D. on 12/02/2022 at 11:15 Approved by: Jef Gregory M.D. on 12/02/2022 at 11:16
== END ==
PROVIDERS: PCP Physician Assistant; Referring Provider Physician Assistant; Visit Provider Physician Assistant
DX: K76.89 Other specified diseases of liver (principal); R74.8 Abnormal levels of other serum enzymes
CPT/HCPCS: 76705

== ENCOUNTER 2023-02-03 15:40 | Emergency (ER) | payer OTHER, SELFPAY ==
[2023-02-03] VITALS (45 sets, daily range): BP systolic 109–144; BP diastolic 54–77; PULSE 53–80; RESP 12–27; TEMP 36.9; O2SAT 95–100; BMI 25.8
--- NOTE | 2023-02-03 15:49 | DI.CT.S_ITS ---
PROCEDURE: CT STROKE INDICATIONS: visual loss right eye TECHNIQUE: Noncontrast 4.5 mm thick angled axial sections acquired from the foramen magnum to the vertex, with coronal reformats. For radiation dose reduction, the following was used: automated exposure control, adjustment of mA and/or kV according to patient size. COMPARISON: None. FINDINGS: Image quality: Excellent. CSF spaces: Basal cisterns are patent. No extra-axial fluid collections. The ventricles are symmetric in size and shape. Brain: No intracranial bleeds or masses. There is cerebral volume loss for age, with resultant ventricular and sulcal prominence. There are periventricular and deep white matter chronic small vessel ischemic changes. There is intracranial internal carotid artery atherosclerosis. Skull and face: Calvarium and visualized facial bones appear intact, without suspicious lesions. Sinuses: Visualized sinuses and mastoids are clear. IMPRESSION: No acute intracranial abnormality. Findings discussed with Dr. Fernandez on 02/03/2023 at 16:15 hours. This study fulfills neurological imaging criteria for inclusion or exclusion of acute stroke therapies based on available published neurological guidelines. Dictated by: Shannan Fuller M.D. on 02/03/2023 at 16:13 Approved by: Shannan Fuller M.D. on 02/03/2023 at 16:14
--- NOTE | 2023-02-03 15:50 | DI.CT.S_ITS ---
PROCEDURE: CT ANGIO HEAD AND NECK INDICATIONS: loss of vision right eye TECHNIQUE: After the administration of intravenous contrast, 1 mm thick sections acquired from the aortic arch through the [place] of [place]. 3-dimensional qzyfpxm-eirnirksr-zzmluzzwpo (MIP) and/or volume rendering reformats were acquired of the central intracranial vasculature and neck separately. For radiation dose reduction, the following was used: automated exposure control, adjustment of mA and/or kV according to patient size. COMPARISON: [facility], MR, MR BRAIN WITH/WITHOUT CONTRAST, 03/29/2021, 15:00. [facility], CT, HEAD WITHOUT CONTRAST, 09/29/2014, 11:10. [facility], CT, CT STROKE, 02/03/2023, 15:59. FINDINGS: Image quality: Limited by bolus timing, with venous contamination. BRAIN: CSF spaces: Ventricles are normal in size and shape. Basal cisterns are patent. No extra-axial fluid collections. Brain: No significant abnormality of the brain can be seen. Skull and face: Calvarium and facial bones appear intact, without suspicious lesions. Orbits appear normal. Sinuses: Sinuses and mastoids are clear. HEAD CT ANGIOGRAPHY: Anterior circulation: Intracranial internal carotid arteries demonstrate atherosclerotic irregularity and calcification, with approximately 50% narrowing seen on each side.. The flow within the paired anterior cerebral arteries is normal and symmetric. The flow within the middle cerebral arteries is normal and symmetric. The anterior communicating artery is seen. No aneurysms are seen. The ophthalmic arteries appear symmetric and are within normal limits. Posterior circulation: Visualized portions of the vertebral arteries demonstrate normal caliber, and join to form a normal appearing basilar artery. Flow within the posterior cerebral arteries is normal and symmetric. No aneurysms are seen. NECK CT ANGIOGRAPHY: Carotid system: Incidental note is made of a common origin of the right brachiocephalic artery and the left common carotid artery (bovine type arch). 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 The origins of the common carotid arteries appear patent. The common carotid arteries demonstrate normal caliber and courses. The bifurcation regions are both widely patent. The internal carotid arteries demonstrate normal calibers and courses. Posterior circulation: The origins of the vertebral arteries both appear widely patent. The more superior extracranial portions of both vertebral arteries also demonstrate normal courses and calibers. They join to form a normal appearing basilar artery. Soft tissues: Visualized neck soft tissues demonstrate no suspicious abnormalities. Bones: No suspicious bony lesions. Visualized cervical spine appears normally aligned. There is moderate to prominent cervical spine degenerative change. IMPRESSION: No significant intracranial arterial abnormality is seen. No significant abnormality of the ophthalmic arteries can be seen. Within the arteries of the neck, no hemodynamically significant stenosis can be seen. No findings of dissection are seen. Additional findings: Moderate to prominent cervical spine degenerative change Bovine type aortic branching pattern Any quantitative measurements of stenosis were performed using NASCET criteria. Dictated by: Jef Gregory M.D. on 02/03/2023 at 15:18 Approved by: Jef Gregory M.D. on 02/03/2023 at 15:24
--- NOTE | 2023-02-03 15:52 | ED.NEUROSD ---
HPI - Neuro Symptoms/Deficit <Mehrdad Fernandez MD - Last Filed: 02/07/23 07:15> General Chief Complaint: Neuro Symptoms/Deficit Stated Complaint: Cloudy Eye Time Seen by Provider: 02/03/23 15:50 History of Present Illness HPI Narrative: Patient brought in by ambulance from home for complaints of decreased vision/blurry vision to the right temporal field. Onset at 1:30 p.m. today. Denies any eye pain. No history of glaucoma. He does wear corrective glasses. He is had cataract surgery in his eye in the past. Denies any injury to the eye. No double vision. No headache. No changes with the left eye vision. Related Data Home Medications Medication Instructions Recorded Confirmed pravastatin 20 mg tablet 20 mg PO DAILY 10/12/18 02/03/23 suvorexant 20 mg tablet (Belsomra) 20 mg PO BEDTIME 10/12/18 02/03/23 ascorbic acid (vitamin C) 500 mg 500 mg PO DAILY 12/24/18 02/03/23 tablet (Vitamin C) multivitamin 1 cap PO DAILY 12/24/18 02/03/23 meloxicam 7.5 mg tablet 15 mg PO BID 03/31/21 02/03/23 trazodone 50 mg tablet 150 mg PO BEDTIME PRN Insomnia 03/31/21 02/03/23 amlodipine 10 mg tablet 10 mg PO DAILY 02/03/23 02/03/23 duloxetine 30 mg capsule,delayed 30 mg PO DAILY 02/03/23 02/03/23 release lisinopril 10 mg tablet 5 mg PO DAILY 02/03/23 02/03/23 silodosin 8 mg capsule 8 mg PO DAILY 02/03/23 02/03/23 Allergies Allergy/AdvReac Type Severity Reaction Status Date / Time No Known Drug Allergies Allergy Verified 02/03/23 18:06 Review of Systems <Mehrdad Fernandez MD - Last Filed: 02/07/23 07:15> Review of Systems Narrative: GENERAL: negative chills, fatigue, malaise, fever, sweats. 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 EYES: Pupils equal round PERRLA/EOMI, no cloudy pupil on the right. No photophobia. No mid dilation of the right eye. Pupils are equal round and reactive to light and accommodation. On peripheral visual booker. Slight delay on the right eye with the temporal field compared to the left. No blood thunder appearance to the retina ENT: Mucous membranes moist. NECK: Trachea midline. CARDIOVASCULAR: Regular rate and rhythm RESPIRATORY: Clear to auscultation. Breath sounds equal bilaterally. No wheezes, rales, or rhonchi. GASTROINTESTINAL: Abdomen soft, non-tender EXTREMITIES: No gross deformities. BACK: No flank tenderness. NEURO: AOx4. Fast exam is negative. Clear speech no facial droop light touch intact bilateral face hands and legs strong equal district gauger negative pronator drift. SKIN: Warm and dry PSYCH: Not anxious, is cooperative Initial Vital Signs Initial Vital Signs: Vital Signs Pulse Rate 69 02/03/23 15:45 Pulse Oximetry 100 02/03/23 15:45 <Noa Martin DO - Last Filed: 02/03/23 23:26> Initial Vital Signs Initial Vital Signs: Vital Signs Pulse Rate 69 02/03/23 15:45 Pulse Oximetry 100 1006/23 15:45 Scores <Mehrdad Fernandez MD - Last Filed: 02/07/23 07:15> NIH Stroke Scale Level of Conciousness: Alert, keenly responsive Ask month/age: Answers both questions correctly. Open/close eyes, close hand: Performs both tasks correctly Best gaze horizontal: Normal Visual booker: Partial hemianopia Facial palsy: Normal symetrical movement Left arm drift: No drift for full 10 sec Right arm drift: No drift for full 10 sec Left leg drift: No drift for full 5 sec Right leg drift: No drift for full 5 sec Limb ataxia: Absent Sensory on face/arms/legs: Normal, no sensory loss Best language: No aphasia, normal Dysarthria: Normal Extinction or inattention: No abnormality Total NIH Stroke scale score: 1 <Noa Martin DO - Last Filed: 02/03/23 23:26> NIH Stroke Scale Total NIH Stroke scale score: 1 Course <Mehrdad Fernandez MD - Last Filed: 02/07/23 07:15> Orders Ordered: Discontinued Medications Sodium Chloride (Normal Saline 0.9%) 1,000 mls @ 150 mls/hr IV CONT YOLANDA Last Infusion: 02/03/23 23:10 Dose: 0 mls/hr Documented By: Admin: 02/03/23 18:06 Dose: 150 mls/hr Documented By: CHARAN Alteplase, Recombinant (Activase) 6.9 mg in 6.9 mls @ 414 mls/hr 0.09 mg/kg (6.9 mg) IV NOW ONE Stop: 02/03/23 16:33 Last Admin: 02/03/23 17:26 Dose: Not Given Documented By: KEENA Alteplase, Recombinant (Activase) 62.5 mg in 62.5 mls @ 62.5 mls/hr 0.81 mg/kg (62.5 mg) IV NOW ONE Stop: 02/03/23 17:31 Last Admin: 02/03/23 17:26 Dose: Not Given Documented By: KEENA Alteplase, Recombinant (Activase) 7.8 mg in 7.8 mls @ 468 mls/hr 0.09 mg/kg (7.8 mg) IV NOW ONE Stop: 02/03/23 16:51 Last Infusion: 02/03/23 17:55 Dose: Infused Documented By: Admin: 02/03/23 16:53 Dose: 468 mls/hr Documented By: KEENA Alteplase, Recombinant (Activase) 70.3 mg in 70.3 mls @ 70.3 mls/hr 0.81 mg/kg (70.3 mg) IV NOW ONE Stop: 02/03/23 17:49 Last Infusion: 02/03/23 17:58 Dose: Infused Documented By: Admin: 02/03/23 16:54 Dose: 70.3 mls/hr Documented By: KEENA Vital Signs Vital signs: Vital Signs - 8 hr 02/03/23 15:45 02/03/23 15:51 02/03/23 16:08 Temperature 98.4 F Pulse Rate 69 65 75 Respiratory Rate 16 Blood Pressure 133/65 Pulse Oximetry 100 100 100 Oxygen Delivery Method Room Air 02/03/23 16:09 02/03/23 16:09 02/03/23 16:15 Temperature Pulse Rate 74 72 Respiratory Rate Blood Pressure 132/62 Pulse Oximetry 100 98 Oxygen Delivery Method 02/03/23 16:30 02/03/23 16:30 02/03/23 16:45 Temperature Pulse Rate 73 80 Respiratory Rate 15 25 H Blood Pressure 127/62 Pulse Oximetry 98 100 Oxygen Delivery Method 02/03/23 16:49 02/03/23 16:49 02/03/23 16:56 Temperature Pulse Rate 76 Respiratory Rate 27 H Blood Pressure 133/59 L 122/60 Pulse Oximetry 99 Oxygen Delivery Method 02/03/23 16:56 02/03/23 17:00 02/03/23 17:00 Temperature Pulse Rate 73 72 Respiratory Rate 25 H 22 Blood Pressure 119/60 Pulse Oximetry 98 100 Oxygen Delivery Method 02/03/23 17:05 02/03/23 17:05 02/03/23 17:10 Temperature Pulse Rate 75 Respiratory Rate 26 H Blood Pressure 117/58 L 110/57 L Pulse Oximetry 99 Oxygen Delivery Method 02/03/23 17:10 02/03/23 17:15 02/03/23 17:15 Temperature Pulse Rate 74 73 Respiratory Rate 25 H 19 Blood Pressure 115/56 L Pulse Oximetry 100 100 Oxygen Delivery Method 02/03/23 17:19 02/03/23 17:20 02/03/23 17:20 Temperature Pulse Rate 73 72 Respiratory Rate 21 23 Blood Pressure 129/60 Pulse Oximetry 98 100 Oxygen Delivery Method 02/03/23 17:25 02/03/23 17:25 02/03/23 17:30 Temperature Pulse Rate 77 74 Respiratory Rate 24 16 Blood Pressure 114/56 L Pulse Oximetry 100 98 Oxygen Delivery Method 02/03/23 17:30 02/03/23 17:35 02/03/23 17:35 Temperature Pulse Rate 73 Respiratory Rate 25 H Blood Pressure 112/55 L 118/55 L Pulse Oximetry 99 Oxygen Delivery Method 02/03/23 17:40 02/03/23 17:40 02/03/23 17:45 Temperature Pulse Rate 73 71 Respiratory Rate 21 15 Blood Pressure 114/57 L Pulse Oximetry 99 100 Oxygen Delivery Method 02/03/23 17:45 02/03/23 17:50 02/03/23 17:50 Temperature Pulse Rate 72 Respiratory Rate 27 H Blood Pressure 131/60 120/58 L Pulse Oximetry 100 Oxygen Delivery Method 02/03/23 17:55 02/03/23 17:55 02/03/23 18:00 Temperature Pulse Rate 72 Respiratory Rate 15 Blood Pressure 115/59 L 111/62 Pulse Oximetry 99 Oxygen Delivery Method 02/03/23 18:00 02/03/23 18:15 02/03/23 18:15 Temperature Pulse Rate 73 73 Respiratory Rate 20 19 Blood Pressure 109/54 L Pulse Oximetry 98 99 Oxygen Delivery Method 02/03/23 18:30 02/03/23 18:45 02/03/23 19:00 Temperature Pulse Rate 73 70 65 Respiratory Rate 24 19 19 Blood Pressure Pulse Oximetry 99 98 100 Oxygen Delivery Method 02/03/23 19:15 02/03/23 19:30 02/03/23 19:36 Temperature Pulse Rate 67 64 Respiratory Rate 21 19 Blood Pressure 137/69 Pulse Oximetry 100 100 Oxygen Delivery Method 02/03/23 19:36 02/03/23 19:45 02/03/23 19:45 Temperature Pulse Rate 62 61 Respiratory Rate 20 16 Blood Pressure 141/64 H Pulse Oximetry 100 100 Oxygen Delivery Method 02/03/23 20:00 02/03/23 20:00 02/03/23 20:15 Temperature Pulse Rate 59 L 59 L Respiratory Rate 15 12 Blood Pressure 130/63 Pulse Oximetry 99 98 Oxygen Delivery Method 02/03/23 20:15 02/03/23 20:23 02/03/23 20:23 Temperature Pulse Rate 69 Respiratory Rate 22 Blood Pressure 142/68 H 144/77 H Pulse Oximetry 97 Oxygen Delivery Method 02/03/23 20:30 02/03/23 20:30 02/03/23 20:45 Temperature Pulse Rate 62 60 Respiratory Rate 21 17 Blood Pressure 117/69 Pulse Oximetry 96 97 Oxygen Delivery Method 02/03/23 20:46 02/03/23 20:46 02/03/23 21:00 Temperature Pulse Rate 63 Respiratory Rate 17 Blood Pressure 140/63 129/59 L Pulse Oximetry 95 Oxygen Delivery Method Room Air 02/03/23 21:00 02/03/23 21:15 02/03/23 21:15 Temperature Pulse Rate 58 L 59 L Respiratory Rate 18 22 Blood Pressure 129/61 Pulse Oximetry 96 98 Oxygen Delivery Method 02/03/23 21:30 02/03/23 21:30 02/03/23 21:45 Temperature Pulse Rate 57 L Respiratory Rate 17 Blood Pressure 132/62 138/65 Pulse Oximetry 95 Oxygen Delivery Method Room Air 02/03/23 21:45 02/03/23 22:00 02/03/23 22:00 Temperature Pulse Rate 58 L 53 L Respiratory Rate 12 18 Blood Pressure 132/63 Pulse Oximetry 98 96 Oxygen Delivery Method 02/03/23 22:15 02/03/23 22:15 02/03/23 22:32 Temperature Pulse Rate 59 L 61 Respiratory Rate 19 Blood Pressure 137/63 Pulse Oximetry 97 99 Oxygen Delivery Method 02/03/23 22:45 Temperature Pulse Rate 54 L Respiratory Rate 17 Blood Pressure Pulse Oximetry 97 Oxygen Delivery Method Room Air <Noa Martin DO - Last Filed: 02/03/23 23:26> Orders Ordered: Discontinued Medications Sodium Chloride (Normal Saline 0.9%) 1,000 mls @ 150 mls/hr IV CONT YOLANDA Last Infusion: 02/03/23 23:10 Dose: 0 mls/hr Documented By: Admin: 02/03/23 18:06 Dose: 150 mls/hr Documented By: CHARAN Alteplase, Recombinant (Activase) 6.9 mg in 6.9 mls @ 414 mls/hr 0.09 mg/kg (6.9 mg) IV NOW ONE Stop: 02/03/23 16:33 Last Admin: 02/03/23 17:26 Dose: Not Given Documented By: KEENA Alteplase, Recombinant (Activase) 62.5 mg in 62.5 mls @ 62.5 mls/hr 0.81 mg/kg (62.5 mg) IV NOW ONE Stop: 02/03/23 17:31 Last Admin: 02/03/23 17:26 Dose: Not Given Documented By: KEENA Alteplase, Recombinant (Activase) 7.8 mg in 7.8 mls @ 468 mls/hr 0.09 mg/kg (7.8 mg) IV NOW ONE Stop: 02/03/23 16:51 Last Infusion: 02/03/23 17:55 Dose: Infused Documented By: Admin: 02/03/23 16:53 Dose: 468 mls/hr Documented By: KEENA Alteplase, Recombinant (Activase) 70.3 mg in 70.3 mls @ 70.3 mls/hr 0.81 mg/kg (70.3 mg) IV NOW ONE Stop: 02/03/23 17:49 Last Infusion: 02/03/23 17:58 Dose: Infused Documented By: Admin: 02/03/23 16:54 Dose: 70.3 mls/hr Documented By: KEENA Vital Signs Vital signs: Vital Signs - 8 hr 02/03/23 15:45 02/03/23 15:51 02/03/23 16:08 Temperature 98.4 F Pulse Rate 69 65 75 Respiratory Rate 16 Blood Pressure 133/65 Pulse Oximetry 100 100 100 Oxygen Delivery Method Room Air 02/03/23 16:09 02/03/23 16:09 02/03/23 16:15 Temperature Pulse Rate 74 72 Respiratory Rate Blood Pressure 132/62 Pulse Oximetry 100 98 Oxygen Delivery Method 02/03/23 16:30 02/03/23 16:30 02/03/23 16:45 Temperature Pulse Rate 73 80 Respiratory Rate 15 25 H Blood Pressure 127/62 Pulse Oximetry 98 100 Oxygen Delivery Method 02/03/23 16:49 02/03/23 16:49 02/03/23 16:56 Temperature Pulse Rate 76 Respiratory Rate 27 H Blood Pressure 133/59 L 122/60 Pulse Oximetry 99 Oxygen Delivery Method 02/03/23 16:56 02/03/23 17:00 02/03/23 17:00 Temperature Pulse Rate 73 72 Respiratory Rate 25 H 22 Blood Pressure 119/60 Pulse Oximetry 98 100 Oxygen Delivery Method 02/03/23 17:05 02/03/23 17:05 02/03/23 17:10 Temperature Pulse Rate 75 Respiratory Rate 26 H Blood Pressure 117/58 L 110/57 L Pulse Oximetry 99 Oxygen Delivery Method 02/03/23 17:10 02/03/23 17:15 02/03/23 17:15 Temperature Pulse Rate 74 73 Respiratory Rate 25 H 19 Blood Pressure 115/56 L Pulse Oximetry 100 100 Oxygen Delivery Method 02/03/23 17:19 02/03/23 17:20 02/03/23 17:20 Temperature Pulse Rate 73 72 Respiratory Rate 21 23 Blood Pressure 129/60 Pulse Oximetry 98 100 Oxygen Delivery Method 02/03/23 17:25 02/03/23 17:25 02/03/23 17:30 Temperature Pulse Rate 77 74 Respiratory Rate 24 16 Blood Pressure 114/56 L Pulse Oximetry 100 98 Oxygen Delivery Method 02/03/23 17:30 02/03/23 17:35 02/03/23 17:35 Temperature Pulse Rate 73 Respiratory Rate 25 H Blood Pressure 112/55 L 118/55 L Pulse Oximetry 99 Oxygen Delivery Method 02/03/23 17:40 02/03/23 17:40 02/03/23 17:45 Temperature Pulse Rate 73 71 Respiratory Rate 21 15 Blood Pressure 114/57 L Pulse Oximetry 99 100 Oxygen Delivery Method 02/03/23 17:45 02/03/23 17:50 02/03/23 17:50 Temperature Pulse Rate 72 Respiratory Rate 27 H Blood Pressure 131/60 120/58 L Pulse Oximetry 100 Oxygen Delivery Method 02/03/23 17:55 02/03/23 17:55 02/03/23 18:00 Temperature Pulse Rate 72 Respiratory Rate 15 Blood Pressure 115/59 L 111/62 Pulse Oximetry 99 Oxygen Delivery Method 02/03/23 18:00 02/03/23 18:15 02/03/23 18:15 Temperature Pulse Rate 73 73 Respiratory Rate 20 19 Blood Pressure 109/54 L Pulse Oximetry 98 99 Oxygen Delivery Method 02/03/23 18:30 02/03/23 18:45 02/03/23 19:00 Temperature Pulse Rate 73 70 65 Respiratory Rate 24 19 19 Blood Pressure Pulse Oximetry 99 98 100 Oxygen Delivery Method 02/03/23 19:15 02/03/23 19:30 02/03/23 19:36 Temperature Pulse Rate 67 64 Respiratory Rate 21 19 Blood Pressure 137/69 Pulse Oximetry 100 100 Oxygen Delivery Method 02/03/23 19:36 02/03/23 19:45 02/03/23 19:45 Temperature Pulse Rate 62 61 Respiratory Rate 20 16 Blood Pressure 141/64 H Pulse Oximetry 100 100 Oxygen Delivery Method 02/03/23 20:00 02/03/23 20:00 02/03/23 20:15 Temperature Pulse Rate 59 L 59 L Respiratory Rate 15 12 Blood Pressure 130/63 Pulse Oximetry 99 98 Oxygen Delivery Method 02/03/23 20:15 02/03/23 20:23 02/03/23 20:23 Temperature Pulse Rate 69 Respiratory Rate 22 Blood Pressure 142/68 H 144/77 H Pulse Oximetry 97 Oxygen Delivery Method 02/03/23 20:30 02/03/23 20:30 02/03/23 20:45 Temperature Pulse Rate 62 60 Respiratory Rate 21 17 Blood Pressure 117/69 Pulse Oximetry 96 97 Oxygen Delivery Method 02/03/23 20:46 02/03/23 20:46 02/03/23 21:00 Temperature Pulse Rate 63 Respiratory Rate 17 Blood Pressure 140/63 129/59 L Pulse Oximetry 95 Oxygen Delivery Method Room Air 02/03/23 21:00 02/03/23 21:15 02/03/23 21:15 Temperature Pulse Rate 58 L 59 L Respiratory Rate 18 22 Blood Pressure 129/61 Pulse Oximetry 96 98 Oxygen Delivery Method 02/03/23 21:30 02/03/23 21:30 02/03/23 21:45 Temperature Pulse Rate 57 L Respiratory Rate 17 Blood Pressure 132/62 138/65 Pulse Oximetry 95 Oxygen Delivery Method Room Air 02/03/23 21:45 02/03/23 22:00 02/03/23 22:00 Temperature Pulse Rate 58 L 53 L Respiratory Rate 12 18 Blood Pressure 132/63 Pulse Oximetry 98 96 Oxygen Delivery Method 02/03/23 22:15 02/03/23 22:15 02/03/23 22:32 Temperature Pulse Rate 59 L 61 Respiratory Rate 19 Blood Pressure 137/63 Pulse Oximetry 97 99 Oxygen Delivery Method 02/03/23 22:45 Temperature Pulse Rate 54 L Respiratory Rate 17 Blood Pressure Pulse Oximetry 97 Oxygen Delivery Method Room Air MDM - Neuro Symptoms/Deficit <Mehrdad Brennick, MD - Last Filed: 02/07/23 07:15> Lab Data 02/03/23 16:00 02/03/23 16:00 Labs: Lab Results 02/03/23 02/03/23 02/03/23 Range/Units 16:00 18:12 18:32 WBC 5.3 (4.5-11.0) X10^3/uL RBC 3.92 L (4.5-5.9) X10^6/uL Hgb 13.6 (13.5-17.5) g/dL Hct 39.4 L (41-53) % MCV 100.5 H (80-100) fL MCH 34.6 H (26-34) PG MCHC 34.5 (30-36) % RDW 12.5 (11.6-14.8) % Plt Count 110 L (150-400) X10^3/uL Neut % (Auto) 59.5 (50-75) % Lymph % (Auto) 27.1 (25-40) % [place] % (Auto) 10.4 (3-14) % Eos % (Auto) 2.3 (2-4) % Baso % (Auto) 0.7 (0-2) % Neut # (Auto) 3100 (4083-8304) /uL Lymph # (Auto) 1400 (7642-1920) /uL [place] # (Auto) 500 (0-900) /uL Eos # (Auto) 100 (0-450) /uL Baso # (Auto) 0 (0-100) /uL PT 12.5 (10.1-12.7) SECONDS INR 1.1 (0.9-1.3) APTT 26 (26-36) SECONDS Sodium 141 (137-145) mmol/L Potassium 4.3 (3.4-5.1) mmol/L Chloride 108 H (98-107) mmol/L Carbon Dioxide 27 (22-32) mmol/L BUN 17 (9-20) mg/dL Creatinine 1.25 (0.66-1.25) mg/dL Estimated GFR 57 L (>60) mL/min BUN/Creatinine Ratio 13.6 (6-22) Glucose 135 H (80-110) mg/dL Calcium 9.2 (8.4-10.2) mg/dL Total Bilirubin 1.0 (0.2-1.3) mg/dL AST 59 (17-59) IU/L ALT 87 H (<50) IU/L Alkaline Phosphatase 47 (38-126) U/L Total Creatine Kinase 170 (55-170) U/L Troponin I < 0.012 (0.01-0.034) ng/mL Total Protein 6.6 (6.3-8.2) g/dL Albumin 4.3 (3.5-5.0) g/dL Globulin 2.3 (1.7-4.1) g/dL Albumin/Globulin Ratio 1.9 (1.0-2.8) Urine Color Yellow Urine Appearance Clear Urine pH 7.5 (4.5-8.0) Ur Specific [place] 1.010 (1.000-1.035) Urine Protein Negative (Negative) Urine Glucose (UA) Negative (Negative) g/dL Urine Ketones Negative (NEGATIVE) Urine Occult Blood 1+ H (Negative) Urine Nitrate Negative (Negative) Urine Bilirubin Negative (NEGATIVE) Urine Urobilinogen 0.2 (0.2) E.U./dL Ur Leukocyte Esterase Negative (NEGATIVE) Urine RBC 5-10/hpf H (0-5/HPF) Urine WBC 0-1/hpf (0-5/HPF) Ur Squamous Epith Cells 0-1 /hpf (0-5/HPF) Urine Bacteria None seen (None) Ur Culture Indicated? Cult not indicated U Opiates 300ng/mL cut Negative (Negative) Ur Oxycodone Screen Negative (Negative) Urine Methadone Screen Negative (Negative) Ur Barbiturates Screen Negative (Negative) U Tricyclic Antidepress Negative (Negative) Ur Phencyclidine Scrn Negative (Negative) Ur Amphetamines Screen Negative (Negative) U Methamphetamines Scrn Negative (Negative) Ur MDMA Scrn (Ecstasy) Negative (Negative) U Benzodiazepines Scrn Negative (Negative) Urine Cocaine Screen Negative (Negative) U Marijuana (THC) Screen Positive H (Negative) Ethyl Alcohol < 10 ( - 10) mg/dL SARS-CoV-2 (PCR) Negative (Negative) Point of Care Testing Glucose POC 145 Imaging Data CTA - brain/neck: Radiologist's Impression: [address] [address] [address] Scan Report Signed Patient: Wayne Ibarra MR#: [id number] : 1940 Acct:[id number] Age/Sex: 82 / M Date of Service: 02/03/23 Loc: ED Accession Number: [id number] Procedure: CT angio head and neck Ordering Provider: Mehrdad Fernandez MD PROCEDURE: CT ANGIO HEAD AND NECK INDICATIONS: loss of vision right eye TECHNIQUE: After the administration of intravenous contrast, 1 mm thick sections acquired from the aortic arch through the [place] of [place]. 3-dimensional ytdmicj-acbrncucp-bssduosctv (MIP) and/or volume rendering reformats were acquired of the central intracranial vasculature and neck separately. For radiation dose reduction, the following was used: automated exposure control, adjustment of mA and/or kV according to patient size. COMPARISON: [facility], MR, MR BRAIN WITH/WITHOUT CONTRAST, 03/29/2021, 15:00. [facility], CT, HEAD WITHOUT CONTRAST, 09/29/2014, 11:10. [facility], CT, CT STROKE, 02/03/2023, 15:59. FINDINGS: Image quality: Limited by bolus timing, with venous contamination. BRAIN: CSF spaces: Ventricles are normal in size and shape. Basal cisterns are patent. No extra-axial fluid collections. Brain: No significant abnormality of the brain can be seen. Skull and face: Calvarium and facial bones appear intact, without suspicious lesions. Orbits appear normal. Sinuses: Sinuses and mastoids are clear. HEAD CT ANGIOGRAPHY: Anterior circulation: Intracranial internal carotid arteries demonstrate atherosclerotic irregularity and calcification, with approximately 50% narrowing seen on each side.. The flow within the paired anterior cerebral arteries is normal and symmetric. The flow within the middle cerebral arteries is normal and symmetric. The anterior communicating artery is seen. No aneurysms are seen. The ophthalmic arteries appear symmetric and are within normal limits. Posterior circulation: Visualized portions of the vertebral arteries demonstrate normal caliber, and join to form a normal appearing basilar artery. Flow within the posterior cerebral arteries is normal and symmetric. No aneurysms are seen. NECK CT ANGIOGRAPHY: Carotid system: Incidental note is made of a common origin of the right brachiocephalic artery and the left common carotid artery (bovine type arch). 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 The origins of the common carotid arteries appear patent. The common carotid arteries demonstrate normal caliber and courses. The bifurcation regions are both widely patent. The internal carotid arteries demonstrate normal calibers and courses. Posterior circulation: The origins of the vertebral arteries both appear widely patent. The more superior extracranial portions of both vertebral arteries also demonstrate normal courses and calibers. They join to form a normal appearing basilar artery. Soft tissues: Visualized neck soft tissues demonstrate no suspicious abnormalities. Bones: No suspicious bony lesions. Visualized cervical spine appears normally aligned. There is moderate to prominent cervical spine degenerative change. IMPRESSION: No significant intracranial arterial abnormality is seen. No significant abnormality of the ophthalmic arteries can be seen. Within the arteries of the neck, no hemodynamically significant stenosis can be seen. No findings of dissection are seen. Additional findings: Moderate to prominent cervical spine degenerative change Bovine type aortic branching pattern Any quantitative measurements of stenosis were performed using NASCET criteria. Dictated by: Jef Gregory M.D. on 02/03/2023 at 15:18 Approved by: Jef Gregory M.D. on 02/03/2023 at 15:24 CT scan - head: Radiologist's Impression: [place] [address] CT Scan Report Signed Patient: Wayne Ibarra MR#: [id number] : 1940 Acct:[id number] Age/Sex: 82 / M Date of Service: 02/03/23 Loc: ED Accession Number: [id number] Procedure: CT Stroke Ordering Provider: Mehrdad Fernandez MD PROCEDURE: CT STROKE INDICATIONS: visual loss right eye TECHNIQUE: Noncontrast 4.5 mm thick angled axial sections acquired from the foramen magnum to the vertex, with coronal reformats. For radiation dose reduction, the following was used: automated exposure control, adjustment of mA and/or kV according to patient size. COMPARISON: None. FINDINGS: Image quality: Excellent. CSF spaces: Basal cisterns are patent. No extra-axial fluid collections. The ventricles are symmetric in size and shape. Brain: No intracranial bleeds or masses. There is cerebral volume loss for age, with resultant ventricular and sulcal prominence. There are periventricular and deep white matter chronic small vessel ischemic changes. There is intracranial internal carotid artery atherosclerosis. Skull and face: Calvarium and visualized facial bones appear intact, without suspicious lesions. Sinuses: Visualized sinuses and mastoids are clear. IMPRESSION: No acute intracranial abnormality. Findings discussed with Dr. Fernandez on 02/03/2023 at 16:15 hours. This study fulfills neurological imaging criteria for inclusion or exclusion of acute stroke therapies based on available published neurological guidelines. Dictated by: Shannan Fuller M.D. on 02/03/2023 at 16:13 Approved by: Shannan Fuller M.D. on 02/03/2023 at 16:14 [facility] Narrative Medical decision making narrative: Patient brought in by ambulance from home for complaints of decreased vision/blurry vision to the right temporal field. Onset at 1:30 p.m. today. Denies any eye pain. No history of glaucoma. He does wear corrective glasses. He is had cataract surgery in his eye in the past. Denies any injury to the eye. No double vision. No headache. No changes with the left eye vision. After history and exam CBC CMP EKG CT head CT angiogram head and neck stroke protocol normal saline [facility] CC: Right eye vision loss Complicating co-morbidities: History of cataract Data collected from: Patient Medical records reviewed: No recent visit for this complaint Differential considered: Includes but not limited to acute closure glaucoma, retinal detachment, stroke, TIA Exam documented above, pertinent findings include: Delayed right temporal field Lab Test results independently reviewed as above. Pertinent findings: WBC 5.3 hemoglobin 13.6 INR 1.1 sodium 141 potassium 4.3 troponin less than 0.012 Independently reviewed EKG sinus rhythm rate [address] elevation or depression Imaging studies independently reviewed: CT head CT angiogram head and neck no acute finding Consultations: 4:[address] Carr, [facility] tele stroke, given the patient's low stroke scale but however this involves patient's vision. Patient should have conversation risks and benefits of thrombolytic versus aspirin pathway. I did speak with patient and he does desire to have thrombolytic. Risks and benefits reviewed with him. He feels he would like it because this involves his vision. Treatments: TPA. Normal saline Re-evaluations: 4:25 p.m.. Spoke with patient and he does agree and desires for tPA. He does understand he will need to be transferred 6:00 p.m.. Patient had resolution of blurry vision in the right eye after tPA. At this time no headache. Has been doing well. Blood pressure stable. Patient understands needs to be transferred for observation due to medication received. Discussion: Appropriate for tPA. Patient wishes to preserve his vision. Risks and benefits reviewed with him. Consent obtained for tPA. Patient understand needs to be transferred Diagnosis: Acute stroke 6:00 p.m. Rebecca: Sign out to Dr Martin patient will need to be transferred after receiving tPA. Symptoms have resolved. Patient is feeling much better. Vital signs are stable. <Noa Martin, DO - Last Filed: 02/03/23 23:26> Lab Data Labs: Lab Results 02/03/23 02/03/23 02/03/23 Range/Units 16:00 18:12 18:32 WBC 5.3 (4.5-11.0) X10^3/uL RBC 3.92 L (4.5-5.9) X10^6/uL Hgb 13.6 (13.5-17.5) g/dL Hct 39.4 L (41-53) % MCV 100.5 H (80-100) fL MCH 34.6 H (26-34) PG MCHC 34.5 (30-36) % RDW 12.5 (11.6-14.8) % Plt Count 110 L (150-400) X10^3/uL Neut % (Auto) 59.5 (50-75) % Lymph % (Auto) 27.1 (25-40) % [place] % (Auto) 10.4 (3-14) % Eos % (Auto) 2.3 (2-4) % Baso % (Auto) 0.7 (0-2) % Neut # (Auto) 3100 (2303-2870) /uL Lymph # (Auto) 1400 (6818-0693) /uL [place] # (Auto) 500 (0-900) /uL Eos # (Auto) 100 (0-450) /uL Baso # (Auto) 0 (0-100) /uL PT 12.5 (10.1-12.7) SECONDS INR 1.1 (0.9-1.3) APTT 26 (26-36) SECONDS Sodium 141 (137-145) mmol/L Potassium 4.3 (3.4-5.1) mmol/L Chloride 108 H (98-107) mmol/L Carbon Dioxide 27 (22-32) mmol/L BUN 17 (9-20) mg/dL Creatinine 1.25 (0.66-1.25) mg/dL Estimated GFR 57 L (>60) mL/min BUN/Creatinine Ratio 13.6 (6-22) Glucose 135 H (80-110) mg/dL Calcium 9.2 (8.4-10.2) mg/dL Total Bilirubin 1.0 (0.2-1.3) mg/dL AST 59 (17-59) IU/L ALT 87 H (<50) IU/L Alkaline Phosphatase 47 (38-126) U/L Total Creatine Kinase 170 (55-170) U/L Troponin I < 0.012 (0.01-0.034) ng/mL Total Protein 6.6 (6.3-8.2) g/dL Albumin 4.3 (3.5-5.0) g/dL Globulin 2.3 (1.7-4.1) g/dL Albumin/Globulin Ratio 1.9 (1.0-2.8) Urine Color Yellow Urine Appearance Clear Urine pH 7.5 (4.5-8.0) Ur Specific [place] 1.010 (1.000-1.035) Urine Protein Negative (Negative) Urine Glucose (UA) Negative (Negative) g/dL Urine Ketones Negative (NEGATIVE) Urine Occult Blood 1+ H (Negative) Urine Nitrate Negative (Negative) Urine Bilirubin Negative (NEGATIVE) Urine Urobilinogen 0.2 (0.2) E.U./dL Ur Leukocyte Esterase Negative (NEGATIVE) Urine RBC 5-10/hpf H (0-5/HPF) Urine WBC 0-1/hpf (0-5/HPF) Ur Squamous Epith Cells 0-1 /hpf (0-5/HPF) Urine Bacteria None seen (None) Ur Culture Indicated? Cult not indicated U Opiates 300ng/mL cut Negative (Negative) Ur Oxycodone Screen Negative (Negative) Urine Methadone Screen Negative (Negative) Ur Barbiturates Screen Negative (Negative) U Tricyclic Antidepress Negative (Negative) Ur Phencyclidine Scrn Negative (Negative) Ur Amphetamines Screen Negative (Negative) U Methamphetamines Scrn Negative (Negative) Ur MDMA Scrn (Ecstasy) Negative (Negative) U Benzodiazepines Scrn Negative (Negative) Urine Cocaine Screen Negative (Negative) U Marijuana (THC) Screen Positive H (Negative) Ethyl Alcohol < 10 ( - 10) mg/dL SARS-CoV-2 (PCR) Negative (Negative) Point of Care Testing Glucose POC 145 MDM Narrative Medical decision making narrative: Patient brought in by ambulance from home for complaints of decreased vision/blurry vision to the right temporal field. Onset at 1:30 p.m. today. Denies any eye pain. No history of glaucoma. He does wear corrective glasses. He is had cataract surgery in his eye in the past. Denies any injury to the eye. No double vision. No headache. No changes with the left eye vision. After history and exam CBC CMP EKG CT head CT angiogram head and neck stroke protocol normal saline MDM CC: Right eye vision loss Complicating co-morbidities: History of cataract Data collected from: Patient Medical records reviewed: No recent visit for this complaint Differential considered: Includes but not limited to acute closure glaucoma, retinal detachment, stroke, TIA Exam documented above, pertinent findings include: Delayed right temporal field Lab Test results independently reviewed as above. Pertinent findings: WBC 5.3 hemoglobin 13.6 INR 1.1 sodium 141 potassium 4.3 troponin less than 0.012 Independently reviewed EKG sinus rhythm rate [address] elevation or depression Imaging studies independently reviewed: CT head CT angiogram head and neck no acute finding Consultations: 4:[address] Carr, [facility] tele stroke, given the patient's low stroke scale but however this involves patient's vision. Patient should have conversation risks and benefits of thrombolytic versus aspirin pathway. I did speak with patient and he does desire to have thrombolytic. Risks and benefits reviewed with him. He feels he would like it because this involves his vision. Treatments: TPA. Normal saline Re-evaluations: 4:25 p.m.. Spoke with patient and he does agree and desires for tPA. He does understand he will need to be transferred 6:00 p.m.. Patient had resolution of blurry vision in the right eye after tPA. At this time no headache. Has been doing well. Blood pressure stable. Patient understands needs to be transferred for observation due to medication received. Discussion: Appropriate for tPA. Patient wishes to preserve his vision. Risks and benefits reviewed with him. Consent obtained for tPA. Patient understand needs to be transferred Diagnosis: Acute stroke 6:00 p.m. Rebecca: Sign out to Dr Martin patient will need to be transferred after receiving tPA. Symptoms have resolved. Patient is feeling much better. Vital signs are stable. 1839 Dr. Martin: Received sign-out from Dr. Fernandez I have seen evaluated patient myself. Awake alert looking at his home. Reports that vision has completely resolved. He denies any headache. Strength in lower extremities equal good [id number] bilaterally face is symmetric speaking without any difficulty. NIH stroke scale 0. Unfortunately unable to find bed. We do not keep status post thrombolytics at this hospital. We will continue to monitor. [facility] has been called. [address] Dr. Carranza at [facility] updated on patient's symptoms test results and kindly accepts patient Yumi Ibarra [phone], at bedside aware of transfer. Critical Care Time <Mehrdad Fernandez MD - Last Filed: 02/07/23 07:15> Critical Care Time Attestation: Critical Care Time 35 minutes: Patient given tPA Critical care time is separate from other billable procedures. This critical care time includes consultation with family and other consulting doctors, review of records, and interpretation of data from labs, EKGs, imaging, etc. Discharge Plan Departure Patient Disposition: General Acute Hospital Clinical Impression: Embolic stroke Qualifiers: Precerebral and cerebral artery: unspecified cerebral artery Qualified Code(s): I63.40 - Cerebral infarction due to embolism of unspecified cerebral artery Prescriptions: No Action pravastatin 20 mg tablet 20 mg PO DAILY Belsomra 20 mg tablet 20 mg PO BEDTIME ascorbic acid (vitamin C) [Vitamin C] 500 mg Tablet 500 mg PO DAILY Rx Instructions: take once in the morning multivitamin Capsule 1 cap PO DAILY meloxicam 7.5 mg tablet 15 mg PO BID amlodipine 10 mg tablet 10 mg PO DAILY duloxetine 30 mg capsule,delayed release(DR/EC) 30 mg PO DAILY lisinopril 10 mg tablet 5 mg PO DAILY silodosin 8 mg capsule 8 mg PO DAILY trazodone 50 mg tablet 150 mg PO BEDTIME PRN (Reason: Insomnia) Patient Comments: Rx'd by PCP Referrals: Arcelia Riggins PA-C [Primary Care Provider] -
[2023-02-03 16:22] LABS: Add Manual Diff / Slide Review NO; Basophils Absolute Auto 0 /uL (0-100); Basophils Percent Auto 0.7 % (0-2); Eosinophils Absolute Auto 100 /uL (0-450); Eosinophils Percent Auto 2.3 % (2-4); Hematocrit 39.4 % (41-53); Hemoglobin 13.6 g/dL (13.5-17.5); Lymphocytes Absolute Auto 1400 /uL (1100-4500); Lymphocytes Percent Auto 27.1 % (25-40); Mean Corpuscular HGB Conc 34.5 % (30-36); Mean Corpuscular Hemoglobin 34.6 PG (26-34); Mean Corpuscular Volume 100.5 fL (80-100); Monocytes Absolute Auto 500 /uL (0-900); Monocytes Percent Auto 10.4 % (3-14); Neutrophils Absolute Auto 3100 /uL (1500-7000); Neutrophils Percent Auto 59.5 % (50-75); Platelet Count 110 X10^3/uL (150-400); Red Blood Cell Count 3.92 X10^6/uL (4.5-5.9); Red Cell Distribution Width 12.5 % (11.6-14.8); White Blood Cell Count 5.3 X10^3/uL (4.5-11.0)
[2023-02-03 16:34] LABS: Alanine Aminotransferase 87 IU/L (<50); Albumin 4.3 g/dL (3.5-5.0); Albumin Globulin Ratio 1.9 (1.0-2.8); Alkaline Phosphatase 47 U/L (38-126); Aspartate Aminotransferase 59 IU/L (17-59); BUN Creatinine Ratio 13.6 (6-22); Blood Urea Nitrogen 17 mg/dL (9-20); Calcium 9.2 mg/dL (8.4-10.2); Carbon Dioxide 27 mmol/L (22-32); Chloride 108 mmol/L (98-107); Creatine Kinase 170 U/L (55-170); Estimated Glomerular Filt Rate 57 mL/min (>60); Ethanol (ETOH) < 10 mg/dL; Globulin 2.3 g/dL (1.7-4.1); Glucose 135 mg/dL (80-110); HEMOLYSIS 30 (0-50); Potassium 4.3 mmol/L (3.4-5.1); Sodium 141 mmol/L (137-145); Total Protein 6.6 g/dL (6.3-8.2)
[2023-02-03 16:35] LABS: PTT Partial Thromboplastin Tim 26 SECONDS (26-36)
[2023-02-03 16:37] LABS: INR 1.1 (0.9-1.3); Prothrombin Time 12.5 SECONDS (10.1-12.7)
[2023-02-03 16:45] LABS: Troponin I < 0.012 ng/mL (0.01-0.034)
[2023-02-03] MEDS: ALTEPLASE 468 MG IV (16:53)
[2023-02-03] MEDS: ALTEPLASE IV (16:54)
--- NOTE | 2023-02-03 16:59 | PC.NURSE ---
Addendum entered by Heidy Luke R.N. 02/03/23 17:02: ATP in previous note should be changed to TPA Original Note: pt states 5 min after start of ATP and 7 min after bolus push, his vision has cleared. informed provider immediately, no change in instructions at this point in care
--- NOTE | 2023-02-03 17:09 | PC.NURSE ---
nurse present at bedside during adminstration of TPA. Vital signs done Q5min, NIH Q15min. at patient request, was called and pt left message about staying in the hospital.
[2023-02-03] MEDS: SODIUM CHLORIDE 0.9% 1,000 ML 150 ML IV (18:06)
[2023-02-03 18:31] LABS: COVID19 -Nasal RAPID Negative (Negative)
[2023-02-03 18:41] LABS: Appearance Urine UA CLEAR; Bilirubin Urine UA NEGATIVE (NEGATIVE); Color Urine UA YELLOW; Glucose Urine UA NEGATIVE (Negative); Ketones Urine UA NEGATIVE (NEGATIVE); Leukocyte Esterase Urine UA NEGATIVE (NEGATIVE); Nitrite Urine UA NEGATIVE (Negative); Occult Blood Urine UA 1+ (Negative); Protein Urine UA NEGATIVE (Negative); Urobilinogen Urine UA 0.2 E.U./dL (0.2); pH Urine UA 7.5 (4.5-8.0)
[2023-02-03 18:45] LABS: UR Morphine/Opiate cutoff 300 Negative (Negative); Ur Creatinine Normal (Normal); Ur Specific Gravity Normal (Normal); Urine Amphetamines Negative (Negative); Urine Barbiturates Negative (Negative); Urine Benzodiazepines Negative (Negative); Urine Cocaine Negative (Negative); Urine MDMA Negative (Negative); Urine Methadone Negative (Negative); Urine Methamphetamines Negative (Negative); Urine Oxycodone Negative (Negative); Urine Phencyclidine Negative (Negative); Urine Tetrahydrocannabinol Positive (Negative); Urine Tricyclic Antidepressant Negative (Negative); Urine pH Normal (Normal)
[2023-02-03 18:47] LABS: Bacteria Urine None Seen; Culture Indicated Urine Cult Not Indicated; RBC Urine 5-10/HPF (0-5/HPF); Squamous Epithelial Cell Urine 0-1 /HPF (0-5/HPF); WBC Urine 0-1/HPF (0-5/HPF)
--- NOTE | 2023-02-03 23:14 | PC.NURSE ---
2250: [facility] arrived to transport patient to [facility] ICU, room 335. Transport nurse, Cherelle given report, all questions answered. Currently patient denies any symptoms/pain. Vital signs WNL. IV fluids running at 150mls at time of transport and to be continued during transport. 2310: Patient transferred out at this time. Receiving nurse in ICU contacted, Satya. Nurse updated on ETA and patient?s current status. All questions answered. Phone number to reach receiving RN is #[phone] Ext. [phone]
== END 2023-02-03 23:16 | disposition short-term general hospital (02) ==
PROVIDERS: Emergency Medicine; Emergency Provider Emergency Medicine; PCP Physician Assistant
DX: I63.40 Cerebral infarction due to embolism of unspecified cerebral artery (principal); R29.701 NIHSS score 1; R79.89 Other specified abnormal findings of blood chemistry; Z20.822 Contact with and (suspected) exposure to COVID-19
CPT/HCPCS: 36415; 70450; 70496; 70498; 80053; 80305; 80320; 81001; 82550; 82962; 84484; 85025; 85610; 85730; 87635; 93005; 96365; 99285; 99291; C9803; J2997

== ENCOUNTER → 2024-02-21 13:02 | Outpatient (CLI) | payer OTHER, SELFPAY | LOC: WC 13:07 | PROVIDERS: PCP Physician Assistant; Referring Provider Family Medicine; Visit Provider Surgery | DX: L53.9 Erythematous condition, unspecified (principal); R21 Rash and other nonspecific skin eruption | CPT/HCPCS: 99203; 99213 ==

== ENCOUNTER → 2024-02-28 15:02 | Outpatient (CLI) | payer OTHER, SELFPAY | LOC: WC 15:03 | PROVIDERS: PCP Physician Assistant; Referring Provider Family Medicine; Visit Provider Physician Assistant | DX: Z09 Encounter for follow-up examination after completed treatment for conditions other than malignant neoplasm (principal); Z87.2 Personal history of diseases of the skin and subcutaneous tissue; L98.8 Other specified disorders of the skin and subcutaneous tissue | CPT/HCPCS: 99211; 99212 ==

== ENCOUNTER → 2024-03-27 13:56 | Outpatient (CLI) | payer OTHER, SELFPAY | PROVIDERS: PCP Physician Assistant; Referring Provider Family Medicine; Visit Provider Physician Assistant | DX: B35.9 Dermatophytosis, unspecified (principal); I10 Essential (primary) hypertension; Z86.73 Personal history of transient ischemic attack (TIA), and cerebral infarction without residual deficits | CPT/HCPCS: 99212; 99213 ==

== ENCOUNTER 2025-01-05 11:46 | Emergency (ER) | payer OTHER, SELFPAY ==
[2025-01-05] VITALS (8 sets, daily range): BP systolic 138–175; BP diastolic 66–77; PULSE 52–85; RESP 16–21; TEMP 36.8; O2SAT 96–99; BMI 25.8
[2025-01-05 12:08] LABS: Add Manual Diff / Slide Review NO; Hematocrit 43.9 % (41-53); Hemoglobin 15.0 g/dL (13.5-17.5); Lymphocytes Absolute Auto 1300 /uL (1100-4500); Mean Corpuscular HGB Conc 34.1 % (30-36); Mean Corpuscular Hemoglobin 34.6 PG (26-34); Mean Corpuscular Volume 101.6 fL (80-100); Platelet Count 148 X10^3/uL (150-400)
--- NOTE | 2025-01-05 12:10 | EKG_ITS ---
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
[2025-01-05 12:18] LABS: Alanine Aminotransferase 133 IU/L (<50); Albumin 4.4 g/dL (3.5-5.0); Albumin Globulin Ratio 1.6 (1.0-2.8); Alkaline Phosphatase 63 U/L (38-126); Blood Urea Nitrogen 39 mg/dL (9-20); Calcium 10.2 mg/dL (8.4-10.2); Carbon Dioxide 27 mmol/L (22-32); Chloride 97 mmol/L (98-107); Estimated Glomerular Filt Rate 48 mL/min (>60); Globulin 2.8 g/dL (1.7-4.1); Glucose 204 mg/dL (70-99); HEMOLYSIS < 15 (0-50); Lipase 29 U/L (23-300); Potassium 3.9 mmol/L (3.4-5.1); Sodium 137 mmol/L (137-145); Total Protein 7.2 g/dL (6.3-8.2)
--- NOTE | 2025-01-05 12:38 | ED.ABDPAIN ---
HPI - Abdominal Pain General Chief Complaint: Abdominal Pain Stated Complaint: abd pain/distress x 3 days Time Seen by Provider: 01/05/25 12:03 Source: patient Mode of arrival: Ambulatory History of Present Illness HPI narrative: Patient is a an 84-year-old male history of hypertension, CVA presenting today with abdominal pain and distention. 4 days ago he has had a dentist where she worked on him for about 3 hours. Since then he has been taking Tylenol and ibuprofen. He has been taking 1000mg-1500 mg of Tylenol at a time alternating with 600 mg of ibuprofen. He reports increase in abdominal pain and distention has some epigastric burning. He has no chest pain or shortness of breath. No fever or chills. Really feels like his abdomen is bloated he is having more hiccups and belching. No prior history of abdominal surgeries or obstruction. He has had decreased p.o. intake he reports mostly due to abdominal discomfort not dental discomfort. Related Data Home Medications ?Medication ?Instructions ?Recorded ?Confirmed pravastatin 20 mg tablet 20 mg PO DAILY 10/12/18 02/03/23 suvorexant 20 mg tablet (Belsomra) 20 mg PO BEDTIME 10/12/18 02/03/23 ascorbic acid (vitamin C) 500 mg 500 mg PO DAILY 12/24/18 02/03/23 tablet (Vitamin C) multivitamin 1 cap PO DAILY 12/24/18 02/03/23 meloxicam 7.5 mg tablet 15 mg PO BID 03/31/21 02/03/23 trazodone 50 mg tablet 150 mg PO BEDTIME PRN Insomnia 03/31/21 02/03/23 amlodipine 10 mg tablet 10 mg PO DAILY 02/03/23 02/03/23 duloxetine 30 mg capsule,delayed 30 mg PO DAILY 02/03/23 02/03/23 release lisinopril 10 mg tablet 5 mg PO DAILY 02/03/23 02/03/23 silodosin 8 mg capsule 8 mg PO DAILY 02/03/23 02/03/23 Previous Rx's ?Medication ?Instructions ?Recorded amoxicillin 875 mg-potassium 1 tab PO BID #20 tabs 01/05/25 clavulanate 125 mg tablet Allergies Allergy/AdvReac Type Severity Reaction Status Date / Time No Known Drug Allergies Allergy Verified 01/05/25 11:59 Patient History Medical History 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) Loss of appetite History of Hodgkin's lymphoma Depression Hyperlipidemia Insomnia Obstructive sleep apnea of adult Surgical History History of tonsillectomy Family History Mother Colon cancer Social History alcohol intake: current substance use type: does not use Exam Initial Vital Signs Initial Vital Signs: Vital Signs Temperature 98.2 F 01/05/25 11:57 Pulse Rate 52 L 01/05/25 11:57 Respiratory Rate 16 01/05/25 11:57 Blood Pressure 151/67 H 01/05/25 11:57 Pulse Oximetry 97 01/05/25 11:57 Oxygen Delivery Method Room Air 01/05/25 11:57 GENERAL: Alert pleasant well-appearing 84-year-old male and in no acute distress. HEENT: Head atraumatic,EOMI, pupils reactive, face symmetric, moist mucous membranes CARDIOVASCULAR: Irregular RESPIRATORY: Breath sounds equal bilaterally, no wheezes rales or rhonchi. ABDOMEN: Soft, mild distention slightly tender epigastric region no significant right upper quadrant tenderness slightly decreased bowel sounds EXTREMITIES: Normal range of motion, no clubbing or edema. Neurovascularly intact NEUROLOGICAL: Alert and oriented x4.Normal gait and speech. Cranial nerves II through XII grossly intact. SKIN: Warm, dry, no laceration, no petechiae, no rashes or lesions. Course Orders Ordered: Discontinued Medications Sodium Chloride (Normal Saline 0.9%) 1,000 mls @ 125 mls/hr IV CONT YOLANDA Last Infusion: 01/05/25 16:06 Dose: 0 mls/hr Documented By: Admin: 01/05/25 14:36 Dose: 125 mls/hr Documented By: Ceftriaxone Sodium 2,000 mg/ (Sodium Chloride) 100 mls @ 200 mls/hr IV NOW ONE Stop: 01/05/25 14:57 Last Infusion: 01/05/25 15:47 Dose: Infused Documented By: Admin: 01/05/25 15:16 Dose: 200 mls/hr Documented By: MPO Ondansetron HCl (Ondansetron 4 Mg/2 Ml Inj) 4 mg IV NOW PRN PRN Reason: Nausea And Vomiting Ondansetron HCl (Ondansetron 4 Mg Odt) 4 mg PO NOW PRN PRN Reason: Nausea And Vomiting Pantoprazole Sodium (Pantoprazole 40 Mg Vial) 40 mg IV NOW ONE Stop: 01/05/25 12:45 Last Admin: 01/05/25 12:54 Dose: 40 mg Documented By: Vital Signs Vital signs: Vital Signs - 8 hr 01/05/25 11:57 01/05/25 13:18 Temperature 98.2 F Pulse Rate 52 L 74 Respiratory Rate 16 21 Blood Pressure 151/67 H 175/77 H Pulse Oximetry 97 99 Oxygen Delivery Method Room Air MDM - Abdominal Pain Lab Data 01/05/25 12:01 01/05/25 12:01 Labs: Lab Results 01/05/25 01/05/25 Range/Units 12:01 12:50 WBC 21.1 H (4.5-11.0) X10^3/uL RBC 4.32 L (4.5-5.9) X10^6/uL Hgb 15.0 (13.5-17.5) g/dL Hct 43.9 (41-53) % MCV 101.6 H (80-100) fL MCH 34.6 H (26-34) PG MCHC 34.1 (30-36) % RDW 12.6 (11.6-14.8) % Plt Count 148 L (150-400) X10^3/uL Neut % (Auto) 87.9 H (50-75) % Lymph % (Auto) 6.0 L (25-40) % [place] % (Auto) 5.7 (3-14) % Eos % (Auto) 0.0 L (2-4) % Baso % (Auto) 0.4 (0-2) % Neut # (Auto) 28962 H (1955-9584) /uL Lymph # (Auto) 1300 (4822-6964) /uL [place] # (Auto) 1200 H (0-900) /uL Eos # (Auto) 0 (0-450) /uL Baso # (Auto) 100 (0-100) /uL Sodium 137 (137-145) mmol/L Potassium 3.9 (3.4-5.1) mmol/L Chloride 97 L (98-107) mmol/L Carbon Dioxide 27 (22-32) mmol/L BUN 39 H (9-20) mg/dL Creatinine 1.42 H (0.66-1.25) mg/dL Estimated GFR 48 L (>60) mL/min BUN/Creatinine Ratio 27.5 H (6-22) Glucose 204 H (70-99) mg/dL Lactate 2.1 (0.7-2.1) mmol/L Calcium 10.2 (8.4-10.2) mg/dL Total Bilirubin 0.6 (0.2-1.3) mg/dL AST 93 H (17-59) IU/L ALT 133 H (<50) IU/L Alkaline Phosphatase 63 (38-126) U/L Total Creatine Kinase 70 (55-170) U/L Troponin I < 0.012 (0.01-0.034) ng/mL Total Protein 7.2 (6.3-8.2) g/dL Albumin 4.4 (3.5-5.0) g/dL Globulin 2.8 (1.7-4.1) g/dL Albumin/Globulin Ratio 1.6 (1.0-2.8) Lipase 29 (23-300) U/L Acetaminophen < 10 (10-30) ug/mL Imaging Data CT scan - abdomen/pelvis: Radiologist's Impression: PROCEDURE: CT ABDOMEN PELVIS W CON INDICATIONS: distention nausea TECHNIQUE: After the administration of intravenous contrast, axial sections acquired from the lung bases to the pubic symphysis. Coronal and sagittal reformats were performed. For radiation dose reduction, the following was used: automated exposure control, adjustment of mA and/or kV according to patient size. COMPARISON: [facility], [place] ABDOMEN LIMITED, 12/02/2022, 11:21. (Additional prior imaging is not available for review from the archive at the time of this dictation.) FINDINGS: Image quality: Diagnostic. Lower Chest: A small hiatal hernia is incidentally noted. ABDOMEN: Liver: No solid mass. Diffuse fatty liver infiltration is noted. Gallbladder: No radiopaque gallstones or wall thickening. Biliary ducts: No biliary dilation. Pancreas: No ductal dilation. Spleen: Size is within normal limits. Adrenal Glands: No adrenal nodules. Kidneys and Ureters: No hydronephrosis. No solid mass. No complex renal cystic lesion which requires follow up. Stomach and Bowel: There is moderate wall thickening seen involving the ascending colon and the transverse colon. There is also wall thickening seen involving the sigmoid colon. Minimal distal colonic diverticulosis is seen, without findings of active diverticulitis. Abnormal wall thickening seen is seen involving the duodenum. No dilated loops of small bowel are seen. A normal appendix is noted. Peritoneum: No peritoneal abscess is seen. The No abnormal intraperitoneal fluid. No free air. Ventral Wall: A mild fat containing periumbilical hernia can be seen. Abdominal Nodes: No retroperitoneal or mesenteric adenopathy by size criteria. Vessels: Aorta and inferior vena cava are normal in size. PELVIS: Pelvic Organs: The prostate is enlarged, measuring 5.1 cm transversely. Bladder: No bladder wall thickening, accounting for underdistention. Pelvic Nodes: No enlarged lymph nodes. Miscellaneous: Mild bilateral fat containing inguinal hernias are seen. Right groin clips are seen. Bones: No aggressive osseous abnormality. IMPRESSION: Moderate multifocal colonic wall thickening can be seen, which is worst involving the ascending colon and the transverse colon. Please correlate with potential infectious and inflammatory causes of colitis. No findings of perforation or abscess can be seen. Abnormal wall thickening is also seen involving the duodenum, consistent with duodenitis. Additional findings: Small hiatal hernia Fatty liver infiltration Mild bilateral fat containing inguinal hernias Right groin clips Dictated by: Jfe Gregory M.D. on 01/05/2025 at 12:26 Approved by: Jef Gregory M.D. on 01/05/2025 at 12:31 ECG Data Interpretation: Irregular rhythm appears to be sinus with a PVC there is a compensatory pause rate is 64 right bundle-branch block noted similar to prior EKGs MDM Narrative Medical decision making narrative: MDM CC: Abdominal pain distended Complicating co-morbidities: Elderly age CVA Data collected from: Patient and Medical records reviewed: Prior ED record from 2022 says it he had a CVA with tPA Differential considered: Tylenol overdose, bowel obstruction, bowel perforation Exam documented above, pertinent findings include: Tender epigastric region mild distention appears well Lab Test results independently reviewed as above. Pertinent findings: WBC 21 BUN 39 creatinine 1.42 Bilirubin 0.6, AST 93 ALT 133 alk-phos 63 Lactate 2.1 Blood cultures pending Independently reviewed EKG as above Right bundle-branch block, appears similar to previous Imaging studies independently reviewed: CT abdomen pelvis with multifocal colonic wall thickening involving ascending and transverse colon Consultations: None Treatments IV fluids and Rocephin Re-evaluations: Patient is feeling better tolerating fluids Discussion: Patient 84-year-old male presenting today with abdominal pain distention and low appetite. He is found to have leukocytosis of [address] scan shows colitis. Long discussion with both patient and about admission versus discharge home. At this time he would like to try and go home with antibiotics. We discussed strict return precautions. At this time he is tolerating fluids recommended a clear liquid diet at home offered pain medication however he declined. Discharge Plan Departure Patient Disposition: Home Clinical Impression: Colitis Instructions: DI for Colitis Activity Restrictions/Additional Instructions: *You have been diagnosed with colitis *What to do: At this time you do have colitis which is inflammation and infection of your colon. I do recommend clear liquid diet such as broth Jell-O electrolytes. May advance diet as pain improves *Continue to take medications as directed Augmentin 875 twice a day for 10 days Tylenol 1000 mg every 6 hours for [id number] Motrin 600 mg every 6 hours [id number] pain *Follow up with your primary care provider in 2-3 days or call [phone] *Return to ER if you should have increasing pain not tolerating fluids persistent nausea or vomiting [or] any new, worsening or concerning symptoms Prescriptions: New amoxicillin-pot clavulanate 875-125 mg tablet 1 tab PO BID Qty: 20 0RF No Action pravastatin 20 mg tablet 20 mg PO DAILY Belsomra 20 mg tablet 20 mg PO BEDTIME ascorbic acid (vitamin C) [Vitamin C] 500 mg Tablet 500 mg PO DAILY Rx Instructions: take once in the morning multivitamin Capsule 1 cap PO DAILY meloxicam 7.5 mg tablet 15 mg PO BID amlodipine 10 mg tablet 10 mg PO DAILY duloxetine 30 mg capsule,delayed release(DR/EC) 30 mg PO DAILY lisinopril 10 mg tablet 5 mg PO DAILY silodosin 8 mg capsule 8 mg PO DAILY trazodone 50 mg tablet 150 mg PO BEDTIME PRN (Reason: Insomnia) Patient Comments: Rx'd by PCP Referrals: Riggins,Arcelia, PA-C [Primary Care Provider, Medical] Stand Alone Forms: Patient Portal/API
--- NOTE | 2025-01-05 12:44 | DI.CT.S_ITS ---
PROCEDURE: CT ABDOMEN PELVIS W CON INDICATIONS: distention nausea TECHNIQUE: After the administration of intravenous contrast, axial sections acquired from the lung bases to the pubic symphysis. Coronal and sagittal reformats were performed. For radiation dose reduction, the following was used: automated exposure control, adjustment of mA and/or kV according to patient size. COMPARISON: [facility], , US ABDOMEN LIMITED, 12/02/2022, 11:21. (Additional prior imaging is not available for review from the archive at the time of this dictation.) FINDINGS: Image quality: Diagnostic. Lower Chest: A small hiatal hernia is incidentally noted. ABDOMEN: Liver: No solid mass. Diffuse fatty liver infiltration is noted. Gallbladder: No radiopaque gallstones or wall thickening. Biliary ducts: No biliary dilation. Pancreas: No ductal dilation. Spleen: Size is within normal limits. Adrenal Glands: No adrenal nodules. Kidneys and Ureters: No hydronephrosis. No solid mass. No complex renal cystic lesion which requires follow up. Stomach and Bowel: There is moderate wall thickening seen involving the ascending colon and the transverse colon. There is also wall thickening seen involving the sigmoid colon. Minimal distal colonic diverticulosis is seen, without findings of active diverticulitis. Abnormal wall thickening seen is seen involving the duodenum. No dilated loops of small bowel are seen. A normal appendix is noted. Peritoneum: No peritoneal abscess is seen. The No abnormal intraperitoneal fluid. No free air. Ventral Wall: A mild fat containing periumbilical hernia can be seen. Abdominal Nodes: No retroperitoneal or mesenteric adenopathy by size criteria. Vessels: Aorta and inferior vena cava are normal in size. PELVIS: Pelvic Organs: The prostate is enlarged, measuring 5.1 cm transversely. Bladder: No bladder wall thickening, accounting for underdistention. Pelvic Nodes: No enlarged lymph nodes. Miscellaneous: Mild bilateral fat containing inguinal hernias are seen. Right groin clips are seen. Bones: No aggressive osseous abnormality. IMPRESSION: Moderate multifocal colonic wall thickening can be seen, which is worst involving the ascending colon and the transverse colon. Please correlate with potential infectious and inflammatory causes of colitis. No findings of perforation or abscess can be seen. Abnormal wall thickening is also seen involving the duodenum, consistent with duodenitis. Additional findings: Small hiatal hernia Fatty liver infiltration Mild bilateral fat containing inguinal hernias Right groin clips Dictated by: Jef Gregory M.D. on 01/05/2025 at 12:26 Approved by: Jef Gregory M.D. on 01/05/2025 at 12:31
[2025-01-05] MEDS: PANTOPRAZOLE 40 MG VIAL IV (12:54)
[2025-01-05 13:17] LABS: Acetaminophen < 10 ug/mL (10-30); Creatine Kinase 70 U/L (55-170)
[2025-01-05 13:18] LABS: Lactate (Lactic Acid) 2.1 mmol/L (0.7-2.1)
[2025-01-05 13:29] LABS: Troponin I < 0.012 ng/mL (0.01-0.034)
[2025-01-05 14:27] LABS: Reflexed Lactate in 2 Hours Y
[2025-01-05] MEDS: SODIUM CHLORIDE 0.9% 1,000 ML 125 ML IV (14:36)
[2025-01-05] MEDS: cefTRIAXone 2,000 MG in SODIUM CHLORIDE 0.9% 100 ML 200 MG IV (15:16)
== END 2025-01-05 16:07 | disposition home or self-care (01) ==
PROVIDERS: Emergency Provider Emergency Medicine; PCP Physician Assistant
DX: K52.9 Noninfective gastroenteritis and colitis, unspecified (principal); Z86.73 Personal history of transient ischemic attack (TIA), and cerebral infarction without residual deficits
CPT/HCPCS: 36415; 74177; 80053; 80329; 82550; 83605; 83690; 84484; 85025; 87040; 93005; 96365; 96375; 99284; G0480; J0696; J2470; Q9967